=== PATIENT | female | born 1935 | race Caucasian/White ===

== ENCOUNTER 2017-11-20 11:28 | Inpatient (IN) | payer OTHER, MEDICARE ==
[2017-11-20] MEDS ORDERED: LEVAQUIN PREMIX IV 750 MG 750 MG/150 ML BAG IV ONE (13:55)
[2017-11-20] MEDS ORDERED: REFLEX: PROVENTIL NEB & PulmiCORT NEB~ NEB SCH (14:00)
[2017-11-20 14:27] LABS: BASOPHILS % (AUTO) 0.4 % (0.2-1.0); EOSINOPHILS # (AUTO) 0.1 x10^3/uL (0.0-0.2); EOSINOPHILS % (AUTO) 0.9 % (0.9-2.9); HEMATOCRIT 39.9 % (36.0-47.0); HEMOGLOBIN 13.7 g/dL (12.0-16.0); MEAN CORPUSCULAR HEMOGLOBIN 30.4 pg (27.0-34.0); MEAN CORPUSCULAR HGB CONC 34.4 g/dL (33.0-35.0); MEAN CORPUSCULAR VOLUME 88.4 fL (80.0-100.0); MEAN PLATELET VOLUME 8.9 fL (7.4-11.0); MONOCYTES # (AUTO) 0.9 x10^3/uL (0.3-0.8); MONOCYTES % (AUTO) 9.2 % (0.0-13.0); NEUTROPHILS % (AUTO) 79.5 % (42.0-75.0); PLATELET COUNT 313 X10^3/uL (150.0-450.0); RED BLOOD COUNT 4.51 X10^6/uL (3.5-5.4); RED CELL DISTRIBUTION WIDTH 13.8 % (11.6-16.5)
[2017-11-20] MEDS ORDERED: NS 1/2 1000 ML IV 1,000 ML IV ONE (14:27)
[2017-11-20 14:39] LABS: ALANINE AMINOTRANSFERASE 21 Units/L (12-78); ALBUMIN 3.4 g/dL (3.4-5.0); ALKALINE PHOSPHATASE 111 Units/L (46-116); ASPARTATE AMINO TRANSFERASE 14 Units/L (15-37); BLOOD UREA NITROGEN 16 mg/dL (7-18); CALCIUM 8.8 mg/dL (8.5-10.1); CARBON DIOXIDE 28.3 mmol/L (21-32); CHLORIDE 97 mmol/L (98-107); COR NA(FOR HYPERGLY) 139 mmol/L (136-145); CREATININE 1.21 mg/dL (0.55-1.02); SODIUM 137 mmol/L (136-145); TOTAL PROTEIN 7.6 g/dL (6.4-8.2); eGFR BLACK RACES 55 (>60); eGFR NON BLACK RACES 46 (>60)
[2017-11-20] MEDS: DUONEB 0.5 MG/3 MG NEB SCH ×3 (14:58→20:38)
[2017-11-20] MEDS: NS 1/2 1000 ML IV 1,000 ML IV SCH (15:00)
[2017-11-20] MEDS: ROBITUSSIN DM PO SCH ×3 (15:00→21:44)
--- NOTE | 2017-11-20 15:11 | RAD ---
Examination: Chest, PA and lateral views History: Pneumonia Comparison reference: None Findings: Normal heart size, essentially clear lungs. Prominent linear markings in the retrocardiac l eft base and costophrenic angle. No consolidation, pneumothorax or pleural fluid. Impression: Probably negative chest. Follow-up suggested to evaluate developing possible infiltrate i n the left lower lobe if symptoms persist. Reported By:
[2017-11-20] MEDS: TYLENOL 325 MG TAB PO PRN (17:20)
[2017-11-20 19:53] LABS: BILIRUBIN,URINE NEGATIVE (NEGATIVE); BLOOD/HEMOGLOBIN,URINE NEGATIVE (NEGATIVE); GLUCOSE, URINE NEGATIVE (NEGATIVE); KETONES,URINE 1+ (NEGATIVE); LEUKOCYTE ESTERASE ,URINE 2+ (NEGATIVE); NITRITES,URINE NEGATIVE (NEGATIVE); PROTEIN,URINE 1+ (NEGATIVE); UROBILINOGEN,URINE NORMAL (NORMAL)
[2017-11-20 19:56] LABS: APPEARANCE,URINE HAZY (CLEAR); BACTERIA,URINE TRACE /HPF (NEGATIVE); COLOR,URINE YELLOW (YELLOW); MUCUS,URINE FEW /HPF (NEGATIVE); SQUAMOUS EPITHELIAL CELL,UR RARE /HPF (NEGATIVE)
[2017-11-20] MEDS: PULMICORT NEB TX 0.5 MG NEB SCH (20:38)
[2017-11-20] MEDS: TUSSIONEX PENNKINETIC SUSP PO PRN (20:40)
[2017-11-21] MEDS ORDERED: NS 1/2 1000 ML IV 1,000 ML IV ONE ×2 (04:32→21:00)
[2017-11-21] MEDS: TYLENOL 325 MG TAB PO PRN ×2 (04:49→16:32)
[2017-11-21] MEDS: NS 1/2 1000 ML IV 1,000 ML IV SCH ×3 (04:50→21:03)
[2017-11-21 05:49] LABS: BASOPHILS % (AUTO) 0.3 % (0.2-1.0); EOSINOPHILS % (AUTO) 0.7 % (0.9-2.9); HEMOGLOBIN 12.3 g/dL (12.0-16.0); LYMPHOCYTES # (AUTO) 1.3 X10^3/uL (1.3-2.9); LYMPHOCYTES % (AUTO) 20.1 % (21.0-51.0); MEAN CORPUSCULAR HEMOGLOBIN 30.3 pg (27.0-34.0); MEAN CORPUSCULAR HGB CONC 34.3 g/dL (33.0-35.0); MEAN CORPUSCULAR VOLUME 88.2 fL (80.0-100.0); MONOCYTES # (AUTO) 0.9 x10^3/uL (0.3-0.8); MONOCYTES % (AUTO) 14.1 % (0.0-13.0); NEUTROPHILS # (AUTO) 4.2 x10^3/uL (2.2-4.8); NEUTROPHILS % (AUTO) 64.8 % (42.0-75.0); PLATELET COUNT 246 X10^3/uL (150.0-450.0); RED BLOOD COUNT 4.08 X10^6/uL (3.5-5.4); RED CELL DISTRIBUTION WIDTH 13.9 % (11.6-16.5); WHITE BLOOD COUNT 6.5 X10^3/uL (3.6-10.0)
[2017-11-21 06:09] LABS: ALANINE AMINOTRANSFERASE 18 Units/L (12-78); ALBUMIN 2.8 g/dL (3.4-5.0); ALKALINE PHOSPHATASE 93 Units/L (46-116); ASPARTATE AMINO TRANSFERASE 14 Units/L (15-37); BLOOD UREA NITROGEN 17 mg/dL (7-18); CALCIUM 8.2 mg/dL (8.5-10.1); CARBON DIOXIDE 29.8 mmol/L (21-32); CHLORIDE 98 mmol/L (98-107); COR CA(FOR HYPOALB) 9.2 mg/dL (8.5-10.1); COR NA(FOR HYPERGLY) 137 mmol/L (136-145); CREATININE 0.98 mg/dL (0.55-1.02); SODIUM 137 mmol/L (136-145); TOTAL PROTEIN 6.6 g/dL (6.4-8.2); eGFR BLACK RACES > 60 (>60); eGFR NON BLACK RACES 58 (>60)
--- NOTE | 2017-11-21 07:41 | RAD ---
Examination: Portable AP chest History: Pneumonia Comparison reference 11/20/2017 Findings: Continued normal heart size. Prominent interstitial pattern again noted in the left lower l pedro luis without interval progression. No consolidation, pulmonary edema or pneumothorax identified. Impression: No change since 1 day earlier. Reported By:
[2017-11-21] MEDS ORDERED: BENTYL CAP 10 MG PO PRN (07:51)
[2017-11-21] MEDS: SYNTHROID 50 mcg TAB PO SCH (08:50)
[2017-11-21] MEDS: ROBITUSSIN DM PO SCH ×4 (08:50→21:10)
[2017-11-21] MEDS: DIFLUCAN 200 MG IV PREMIX* 200 MG/100 ML BAG IV SCH ×2 (08:50→08:51)
[2017-11-21] MEDS: LEVAQUIN PREMIX IV 750 MG 750 MG/150 ML BAG IV SCH ×2 (08:50→08:51)
[2017-11-21] MEDS: WELCHOL PO SCH ×4 (08:51→21:10)
[2017-11-21] MEDS: PROTONIX TAB 40 MG PO SCH ×2 (08:51→21:05)
[2017-11-21] MEDS: ZYLOPRIM PO SCH (08:51)
[2017-11-21] MEDS: MUCINEX EXPECTORANT PO SCH (08:51)
[2017-11-21] MEDS: ZANTAC PO SCH ×2 (08:51→21:04)
[2017-11-21] MEDS: SACCHAROMYCES BOULARDII PO SCH (08:52)
[2017-11-21] MEDS: DUONEB 0.5 MG/3 MG NEB SCH ×2 (08:57→12:10)
[2017-11-21] MEDS: PULMICORT NEB TX 0.5 MG NEB SCH ×2 (08:57→20:59)
[2017-11-21] MEDS ORDERED: LEVAQUIN PREMIX IV 750 MG 750 MG/150 ML BAG IV SCH (09:00)
[2017-11-21] MEDS ORDERED: PHARMACY CONSULT - TPN XX SCH (11:00)
[2017-11-21] MEDS: COLACE CAP 100 MG PO SCH ×2 (11:31→21:09)
[2017-11-21] MEDS: ALBUMIN HUMAN 25%- 100ML 100 ML IV SCH (11:31)
[2017-11-21] MEDS: MILK OF MAGNESIA PO SCH ×4 (11:31→21:09)
[2017-11-21] MEDS: FORTAZ or TAZICEF INJ 2 GM in NS 50 ML IV + SPIKE MINIBAG* 50 ML IV SCH ×3 (12:00→21:04)
[2017-11-21] MEDS ORDERED: PROCALAMINE 3 % 1,000 ML IV SCH ×2 (12:00→16:00)
[2017-11-21] MEDS ORDERED: CHLORASEPTIC SPRAY MT ONE (15:39)
[2017-11-21] MEDS ORDERED: CHLORASEPTIC SPRAY MT PRN (16:03)
[2017-11-21] MEDS: XOPENEX 1.25 MG/3 ML NEBULE NEB SCH ×2 (17:24→21:00)
[2017-11-21] MEDS: TUSSIONEX PENNKINETIC SUSP PO PRN (21:04)
[2017-11-22] MEDS: TYLENOL 325 MG TAB PO PRN (04:59)
[2017-11-22 05:28] LABS: BASOPHILS % (AUTO) 0.3 % (0.2-1.0); EOSINOPHILS % (AUTO) 0.3 % (0.9-2.9); HEMATOCRIT 32.6 % (36.0-47.0); HEMOGLOBIN 11.4 g/dL (12.0-16.0); LYMPHOCYTES # (AUTO) 0.9 X10^3/uL (1.3-2.9); LYMPHOCYTES % (AUTO) 15.2 % (21.0-51.0); MEAN CORPUSCULAR HEMOGLOBIN 30.6 pg (27.0-34.0); MEAN CORPUSCULAR VOLUME 87.5 fL (80.0-100.0); MEAN PLATELET VOLUME 8.8 fL (7.4-11.0); MONOCYTES # (AUTO) 0.8 x10^3/uL (0.3-0.8); NEUTROPHILS # (AUTO) 4.2 x10^3/uL (2.2-4.8); NEUTROPHILS % (AUTO) 71.2 % (42.0-75.0); PLATELET COUNT 228 X10^3/uL (150.0-450.0); RED BLOOD COUNT 3.73 X10^6/uL (3.5-5.4); RED CELL DISTRIBUTION WIDTH 13.8 % (11.6-16.5); WHITE BLOOD COUNT 5.9 X10^3/uL (3.6-10.0)
[2017-11-22] MEDS: FORTAZ or TAZICEF INJ 2 GM in NS 50 ML IV + SPIKE MINIBAG* 50 ML IV SCH ×3 (05:39→21:16)
[2017-11-22] MEDS: NS 1/2 1000 ML IV 1,000 ML IV SCH (05:43)
[2017-11-22 05:57] LABS: ALANINE AMINOTRANSFERASE 17 Units/L (12-78); ALBUMIN 2.8 g/dL (3.4-5.0); ALKALINE PHOSPHATASE 85 Units/L (46-116); ASPARTATE AMINO TRANSFERASE 13 Units/L (15-37); BLOOD UREA NITROGEN 12 mg/dL (7-18); CALCIUM 8.1 mg/dL (8.5-10.1); CARBON DIOXIDE 28.1 mmol/L (21-32); CHLORIDE 99 mmol/L (98-107); COR CA(FOR HYPOALB) 9.1 mg/dL (8.5-10.1); COR NA(FOR HYPERGLY) 137 mmol/L (136-145); CREATININE 0.82 mg/dL (0.55-1.02); SODIUM 136 mmol/L (136-145); TOTAL PROTEIN 6.2 g/dL (6.4-8.2); eGFR BLACK RACES > 60 (>60); eGFR NON BLACK RACES > 60 (>60)
[2017-11-22] MEDS ORDERED: POTASSIUM CHL 60 MEQ/NS 0.45% 500 ML IV PRN (06:31)
[2017-11-22] MEDS ORDERED: MAG-OX TAB PO PRN (06:31)
[2017-11-22] MEDS ORDERED: POTASSIUM CHL 40 MEQ/NS 0.45% 500 ML IV PRN (06:31)
[2017-11-22] MEDS ORDERED: MAGNESIUM SULFATE 1 GM/100 mL PREMIX 1 GM/100 ML BAG IV PRN (06:31)
[2017-11-22] MEDS ORDERED: K-RIDER 10 MEQ/NS 100 ML 10 MEQ/100 ML BAG IV PRN (06:31)
[2017-11-22] MEDS ORDERED: POTASSIUM CHLORIDE LIQ 20 MEQ UDC PO PRN (06:31)
[2017-11-22] MEDS: MUCINEX EXPECTORANT PO SCH (09:16)
[2017-11-22] MEDS: DIFLUCAN 200 MG IV PREMIX* 200 MG/100 ML BAG IV SCH (09:16)
[2017-11-22] MEDS: ZYLOPRIM PO SCH (09:16)
[2017-11-22] MEDS: PROTONIX TAB 40 MG PO SCH ×2 (09:17→21:15)
[2017-11-22] MEDS: ZANTAC PO SCH ×2 (09:17→21:15)
[2017-11-22] MEDS: SYNTHROID 50 mcg TAB PO SCH (09:17)
[2017-11-22] MEDS: WELCHOL PO SCH ×3 (09:17→21:15)
[2017-11-22] MEDS: MILK OF MAGNESIA PO SCH ×4 (09:18→21:17)
[2017-11-22] MEDS: TUSSIONEX PENNKINETIC SUSP PO PRN ×2 (09:18→21:16)
[2017-11-22] MEDS: ROBITUSSIN DM PO SCH ×4 (09:18→21:17)
[2017-11-22] MEDS: ALBUMIN HUMAN 25%- 100ML 100 ML IV SCH (09:19)
[2017-11-22] MEDS: SACCHAROMYCES BOULARDII PO SCH (09:19)
[2017-11-22] MEDS: XOPENEX 1.25 MG/3 ML NEBULE NEB SCH ×4 (09:27→20:33)
[2017-11-22] MEDS: PULMICORT NEB TX 0.5 MG NEB SCH ×2 (09:27→20:32)
[2017-11-22] MEDS: COLACE CAP 100 MG PO SCH (21:18)
[2017-11-23] MEDS: FORTAZ or TAZICEF INJ 2 GM in NS 50 ML IV + SPIKE MINIBAG* 50 ML IV SCH ×3 (06:01→22:02)
--- NOTE | 2017-11-23 06:05 | RAD ---
Examination: Chest, PA and lateral views History: Pneumonia Comparison reference 11/21/2017 Findings: Continued normal heart size. The right lung is clear. Increased streaky density persists at the left lower lung consistent with mild infiltrate or scarring. There is no consolidation, adenopat hy or pleural fluid. Impression: No change. See above. Reported By:
[2017-11-23 06:22] LABS: BASOPHILS % (AUTO) 0.7 % (0.2-1.0); EOSINOPHILS # (AUTO) 0.1 x10^3/uL (0.0-0.2); EOSINOPHILS % (AUTO) 2.8 % (0.9-2.9); HEMATOCRIT 31.5 % (36.0-47.0); LYMPHOCYTES # (AUTO) 1.4 X10^3/uL (1.3-2.9); LYMPHOCYTES % (AUTO) 32.3 % (21.0-51.0); MEAN CORPUSCULAR HEMOGLOBIN 30.5 pg (27.0-34.0); MEAN CORPUSCULAR HGB CONC 34.8 g/dL (33.0-35.0); MEAN CORPUSCULAR VOLUME 87.8 fL (80.0-100.0); MEAN PLATELET VOLUME 8.9 fL (7.4-11.0); MONOCYTES # (AUTO) 0.6 x10^3/uL (0.3-0.8); MONOCYTES % (AUTO) 14.8 % (0.0-13.0); NEUTROPHILS # (AUTO) 2.1 x10^3/uL (2.2-4.8); NEUTROPHILS % (AUTO) 49.4 % (42.0-75.0); PLATELET COUNT 229 X10^3/uL (150.0-450.0); RED BLOOD COUNT 3.59 X10^6/uL (3.5-5.4); RED CELL DISTRIBUTION WIDTH 13.8 % (11.6-16.5); WHITE BLOOD COUNT 4.3 X10^3/uL (3.6-10.0)
[2017-11-23 06:42] LABS: ALANINE AMINOTRANSFERASE 18 Units/L (12-78); ALKALINE PHOSPHATASE 78 Units/L (46-116); ASPARTATE AMINO TRANSFERASE 14 Units/L (15-37); BLOOD UREA NITROGEN 9 mg/dL (7-18); CARBON DIOXIDE 29.8 mmol/L (21-32); CHLORIDE 104 mmol/L (98-107); COR CA(FOR HYPOALB) 8.8 mg/dL (8.5-10.1); SODIUM 140 mmol/L (136-145); TOTAL PROTEIN 6.1 g/dL (6.4-8.2); eGFR BLACK RACES > 60 (>60); eGFR NON BLACK RACES > 60 (>60)
[2017-11-23] MEDS: SYNTHROID 50 mcg TAB PO SCH (08:36)
[2017-11-23] MEDS: SACCHAROMYCES BOULARDII PO SCH (08:36)
[2017-11-23] MEDS: DIFLUCAN 200 MG IV PREMIX* 200 MG/100 ML BAG IV SCH (08:36)
[2017-11-23] MEDS: MILK OF MAGNESIA PO SCH ×4 (08:37→20:41)
[2017-11-23] MEDS: MUCINEX EXPECTORANT PO SCH (08:37)
[2017-11-23] MEDS: PROTONIX TAB 40 MG PO SCH ×2 (08:37→20:41)
[2017-11-23] MEDS: ZYLOPRIM PO SCH (08:37)
[2017-11-23] MEDS: WELCHOL PO SCH ×3 (08:37→20:44)
[2017-11-23] MEDS: ALBUMIN HUMAN 25%- 100ML 100 ML IV SCH (08:37)
[2017-11-23] MEDS: ROBITUSSIN DM PO SCH ×4 (08:42→20:41)
[2017-11-23] MEDS: PULMICORT NEB TX 0.5 MG NEB SCH ×2 (09:06→21:02)
[2017-11-23] MEDS: XOPENEX 1.25 MG/3 ML NEBULE NEB SCH ×4 (09:06→21:02)
[2017-11-23] MEDS: ZANTAC PO SCH ×2 (09:45→20:41)
[2017-11-23] MEDS: K-LYTE EFFERVESCENT PO PRN (18:28)
[2017-11-23] MEDS: TUSSIONEX PENNKINETIC SUSP PO PRN (20:41)
[2017-11-23] MEDS: COLACE CAP 100 MG PO SCH (20:42)
[2017-11-24 05:32] LABS: BASOPHILS % (AUTO) 0.6 % (0.2-1.0); BLOOD UREA NITROGEN 10 mg/dL (7-18); CALCIUM 8.2 mg/dL (8.5-10.1); CARBON DIOXIDE 29.3 mmol/L (21-32); CHLORIDE 104 mmol/L (98-107); COR NA(FOR HYPERGLY) 140 mmol/L (136-145); CREATININE 0.68 mg/dL (0.55-1.02); EOSINOPHILS # (AUTO) 0.2 x10^3/uL (0.0-0.2); EOSINOPHILS % (AUTO) 2.4 % (0.9-2.9); HEMATOCRIT 30.5 % (36.0-47.0); HEMOGLOBIN 10.7 g/dL (12.0-16.0); LYMPHOCYTES # (AUTO) 1.6 X10^3/uL (1.3-2.9); LYMPHOCYTES % (AUTO) 26.2 % (21.0-51.0); MEAN CORPUSCULAR HGB CONC 34.9 g/dL (33.0-35.0); MEAN CORPUSCULAR VOLUME 88.7 fL (80.0-100.0); MEAN PLATELET VOLUME 8.6 fL (7.4-11.0); MONOCYTES # (AUTO) 0.6 x10^3/uL (0.3-0.8); MONOCYTES % (AUTO) 10.3 % (0.0-13.0); NEUTROPHILS # (AUTO) 3.8 x10^3/uL (2.2-4.8); NEUTROPHILS % (AUTO) 60.5 % (42.0-75.0); PLATELET COUNT 252 X10^3/uL (150.0-450.0); RED BLOOD COUNT 3.44 X10^6/uL (3.5-5.4); RED CELL DISTRIBUTION WIDTH 13.8 % (11.6-16.5); SODIUM 140 mmol/L (136-145); WHITE BLOOD COUNT 6.3 X10^3/uL (3.6-10.0); eGFR BLACK RACES > 60 (>60); eGFR NON BLACK RACES > 60 (>60)
[2017-11-24] MEDS: FORTAZ or TAZICEF INJ 2 GM in NS 50 ML IV + SPIKE MINIBAG* 50 ML IV SCH ×3 (05:53→22:15)
[2017-11-24] MEDS: ALBUMIN HUMAN 25%- 100ML 100 ML IV SCH (08:30)
[2017-11-24] MEDS: ZANTAC PO SCH ×2 (08:31→20:38)
[2017-11-24] MEDS: DIFLUCAN 200 MG IV PREMIX* 200 MG/100 ML BAG IV SCH (08:31)
[2017-11-24] MEDS: ZYLOPRIM PO SCH (08:31)
[2017-11-24] MEDS: MUCINEX EXPECTORANT PO SCH (08:31)
[2017-11-24] MEDS: SACCHAROMYCES BOULARDII PO SCH (08:32)
[2017-11-24] MEDS: PROTONIX TAB 40 MG PO SCH ×2 (08:32→20:38)
[2017-11-24] MEDS: SYNTHROID 50 mcg TAB PO SCH (08:32)
[2017-11-24] MEDS: ROBITUSSIN DM PO SCH ×4 (08:33→20:38)
[2017-11-24] MEDS: MILK OF MAGNESIA PO SCH ×4 (08:39→20:38)
[2017-11-24] MEDS: WELCHOL PO SCH ×2 (08:39→20:39)
[2017-11-24] MEDS: XOPENEX 1.25 MG/3 ML NEBULE NEB SCH ×4 (09:12→20:58)
[2017-11-24] MEDS: PULMICORT NEB TX 0.5 MG NEB SCH ×2 (09:12→20:58)
[2017-11-24] MEDS ORDERED: OLMESARTAN MEDOXOMIL HYDROCHLO PO SCH (12:30)
[2017-11-24] MEDS ORDERED: [UNRECOGNIZED DRUG - OTHER] PO SCH (12:30)
[2017-11-24] MEDS ORDERED: BENICAR TAB 40 MG PO ONE (13:11)
[2017-11-24] MEDS: LOPRESSOR TAB 50 MG PO SCH ×2 (13:33→20:38)
[2017-11-24] MEDS: COLACE CAP 100 MG PO SCH ×2 (20:38→20:40)
[2017-11-25 05:06] LABS: BASOPHILS % (AUTO) 0.4 % (0.2-1.0); EOSINOPHILS # (AUTO) 0.1 x10^3/uL (0.0-0.2); EOSINOPHILS % (AUTO) 1.2 % (0.9-2.9); HEMATOCRIT 31.3 % (36.0-47.0); HEMOGLOBIN 10.8 g/dL (12.0-16.0); LYMPHOCYTES # (AUTO) 1.6 X10^3/uL (1.3-2.9); LYMPHOCYTES % (AUTO) 16.6 % (21.0-51.0); MEAN CORPUSCULAR HEMOGLOBIN 30.3 pg (27.0-34.0); MEAN CORPUSCULAR HGB CONC 34.6 g/dL (33.0-35.0); MEAN CORPUSCULAR VOLUME 87.4 fL (80.0-100.0); MEAN PLATELET VOLUME 8.6 fL (7.4-11.0); MONOCYTES # (AUTO) 0.7 x10^3/uL (0.3-0.8); MONOCYTES % (AUTO) 7.8 % (0.0-13.0); NEUTROPHILS # (AUTO) 7.1 x10^3/uL (2.2-4.8); PLATELET COUNT 275 X10^3/uL (150.0-450.0); RED BLOOD COUNT 3.58 X10^6/uL (3.5-5.4); RED CELL DISTRIBUTION WIDTH 13.7 % (11.6-16.5); WHITE BLOOD COUNT 9.6 X10^3/uL (3.6-10.0)
[2017-11-25 05:14] LABS: ALANINE AMINOTRANSFERASE 18 Units/L (12-78); ALBUMIN 3.2 g/dL (3.4-5.0); ALKALINE PHOSPHATASE 77 Units/L (46-116); ASPARTATE AMINO TRANSFERASE 12 Units/L (15-37); BLOOD UREA NITROGEN 11 mg/dL (7-18); CALCIUM 8.5 mg/dL (8.5-10.1); CARBON DIOXIDE 27.5 mmol/L (21-32); CHLORIDE 103 mmol/L (98-107); COR CA(FOR HYPOALB) 9.1 mg/dL (8.5-10.1); COR NA(FOR HYPERGLY) 140 mmol/L (136-145); CREATININE 0.75 mg/dL (0.55-1.02); SODIUM 140 mmol/L (136-145); TOTAL PROTEIN 6.4 g/dL (6.4-8.2); eGFR BLACK RACES > 60 (>60); eGFR NON BLACK RACES > 60 (>60)
[2017-11-25] MEDS: FORTAZ or TAZICEF INJ 2 GM in NS 50 ML IV + SPIKE MINIBAG* 50 ML IV SCH ×3 (05:58→21:30)
--- NOTE | 2017-11-25 07:07 | RAD ---
HISTORY: Follow-up pneumonia Study: Chest PA and lateral Comparison: 11/23/2017, 11/21/20 Findings: The heart is within normal limits in size. The garry are normal. The lungs are well inflated and free of acute alveolar infiltrates. No pleural effusions are identified. The bony thorax is unremarkable. IMPRESSION: Lungs clear Reported By:
[2017-11-25] MEDS: TYLENOL 325 MG TAB PO PRN (07:29)
[2017-11-25] MEDS: XOPENEX 1.25 MG/3 ML NEBULE NEB SCH ×4 (08:44→21:48)
[2017-11-25] MEDS: PULMICORT NEB TX 0.5 MG NEB SCH ×2 (08:44→21:50)
[2017-11-25] MEDS: ZANTAC PO SCH ×2 (09:25→21:38)
[2017-11-25] MEDS: ROBITUSSIN DM PO SCH ×4 (09:25→21:38)
[2017-11-25] MEDS: PROTONIX TAB 40 MG PO SCH ×2 (09:25→21:38)
[2017-11-25] MEDS: DIFLUCAN 200 MG IV PREMIX* 200 MG/100 ML BAG IV SCH (09:25)
[2017-11-25] MEDS: SYNTHROID 50 mcg TAB PO SCH (09:25)
[2017-11-25] MEDS: ALBUMIN HUMAN 25%- 100ML 100 ML IV SCH (09:25)
[2017-11-25] MEDS: ZYLOPRIM PO SCH (09:25)
[2017-11-25] MEDS: MUCINEX EXPECTORANT PO SCH (09:25)
[2017-11-25] MEDS: BENICAR TAB 40 MG PO SCH (09:25)
[2017-11-25] MEDS: LOPRESSOR TAB 50 MG PO SCH ×2 (09:25→21:38)
[2017-11-25] MEDS: HYDROCHLOROTHIAZIDE 25 MG TAB PO SCH (09:25)
[2017-11-25] MEDS: SACCHAROMYCES BOULARDII PO SCH (09:26)
[2017-11-25] MEDS: WELCHOL PO SCH ×2 (09:31→21:40)
[2017-11-25] MEDS: MILK OF MAGNESIA PO SCH ×4 (09:35→21:39)
[2017-11-25] MEDS: ZOFRAN INJ 4 MG VIAL IVP PRN (12:58)
[2017-11-25] MEDS: COLACE CAP 100 MG PO SCH (21:39)
[2017-11-26 04:59] LABS: BASOPHILS % (AUTO) 0.4 % (0.2-1.0); EOSINOPHILS # (AUTO) 0.2 x10^3/uL (0.0-0.2); EOSINOPHILS % (AUTO) 1.9 % (0.9-2.9); HEMATOCRIT 31.8 % (36.0-47.0); HEMOGLOBIN 10.9 g/dL (12.0-16.0); LYMPHOCYTES # (AUTO) 1.7 X10^3/uL (1.3-2.9); LYMPHOCYTES % (AUTO) 16.7 % (21.0-51.0); MEAN CORPUSCULAR HEMOGLOBIN 30.4 pg (27.0-34.0); MEAN CORPUSCULAR HGB CONC 34.2 g/dL (33.0-35.0); MEAN CORPUSCULAR VOLUME 88.9 fL (80.0-100.0); MEAN PLATELET VOLUME 8.7 fL (7.4-11.0); MONOCYTES # (AUTO) 0.8 x10^3/uL (0.3-0.8); MONOCYTES % (AUTO) 7.4 % (0.0-13.0); NEUTROPHILS # (AUTO) 7.5 x10^3/uL (2.2-4.8); NEUTROPHILS % (AUTO) 73.6 % (42.0-75.0); PLATELET COUNT 295 X10^3/uL (150.0-450.0); RED BLOOD COUNT 3.58 X10^6/uL (3.5-5.4); RED CELL DISTRIBUTION WIDTH 13.3 % (11.6-16.5); WHITE BLOOD COUNT 10.3 X10^3/uL (3.6-10.0)
[2017-11-26 05:23] LABS: ALANINE AMINOTRANSFERASE 19 Units/L (12-78); ALBUMIN 3.4 g/dL (3.4-5.0); ALKALINE PHOSPHATASE 79 Units/L (46-116); ASPARTATE AMINO TRANSFERASE 11 Units/L (15-37); BLOOD UREA NITROGEN 12 mg/dL (7-18); CALCIUM 8.6 mg/dL (8.5-10.1); CARBON DIOXIDE 27.7 mmol/L (21-32); CHLORIDE 102 mmol/L (98-107); CREATININE 0.69 mg/dL (0.55-1.02); SODIUM 140 mmol/L (136-145); TOTAL PROTEIN 6.6 g/dL (6.4-8.2); eGFR BLACK RACES > 60 (>60); eGFR NON BLACK RACES > 60 (>60)
[2017-11-26] MEDS: FORTAZ or TAZICEF INJ 2 GM in NS 50 ML IV + SPIKE MINIBAG* 50 ML IV SCH ×3 (05:52→21:15)
[2017-11-26] MEDS: K-LYTE EFFERVESCENT PO PRN (06:30)
[2017-11-26] MEDS: PULMICORT NEB TX 0.5 MG NEB SCH ×2 (08:20→20:51)
[2017-11-26] MEDS: XOPENEX 1.25 MG/3 ML NEBULE NEB SCH ×4 (08:21→20:51)
[2017-11-26] MEDS: ALBUMIN HUMAN 25%- 100ML 100 ML IV SCH (09:34)
[2017-11-26] MEDS: DIFLUCAN 200 MG IV PREMIX* 200 MG/100 ML BAG IV SCH (09:35)
[2017-11-26] MEDS: MILK OF MAGNESIA PO SCH ×4 (09:36→21:22)
[2017-11-26] MEDS: ZANTAC PO SCH ×2 (09:47→21:13)
[2017-11-26] MEDS: WELCHOL PO SCH ×2 (09:47→18:10)
[2017-11-26] MEDS: SACCHAROMYCES BOULARDII PO SCH (09:47)
[2017-11-26] MEDS: BENICAR TAB 40 MG PO SCH (09:47)
[2017-11-26] MEDS: ZYLOPRIM PO SCH (09:47)
[2017-11-26] MEDS: SYNTHROID 50 mcg TAB PO SCH (09:47)
[2017-11-26] MEDS: MUCINEX EXPECTORANT PO SCH (09:48)
[2017-11-26] MEDS: LOPRESSOR TAB 50 MG PO SCH ×2 (09:48→21:13)
[2017-11-26] MEDS: HYDROCHLOROTHIAZIDE 25 MG TAB PO SCH (09:48)
[2017-11-26] MEDS: ROBITUSSIN DM PO SCH ×4 (09:48→21:23)
[2017-11-26] MEDS: PROTONIX TAB 40 MG PO SCH ×2 (09:48→21:13)
[2017-11-26 10:53] LABS: STOOL FOR WBC POSITIVE (NEGATIVE)
[2017-11-26 11:12] LABS: CRYPTOSPORIDIUM PARVUM ANTIGEN NEGATIVE (NEGATIVE); GIARDIA LAMBLIA ANTIGEN NEGATIVE (NEGATIVE)
[2017-11-26] MEDS: TUSSIONEX PENNKINETIC SUSP PO PRN (14:50)
[2017-11-26] MEDS ORDERED: WELCHOL PO SCH (17:00)
[2017-11-26] MEDS: COLACE CAP 100 MG PO SCH (21:22)
[2017-11-27 04:49] LABS: BASOPHILS # (AUTO) 0.1 X10^3/uL (0.0-0.1); BASOPHILS % (AUTO) 0.6 % (0.2-1.0); EOSINOPHILS # (AUTO) 0.2 x10^3/uL (0.0-0.2); EOSINOPHILS % (AUTO) 2.2 % (0.9-2.9); HEMATOCRIT 29.9 % (36.0-47.0); HEMOGLOBIN 10.5 g/dL (12.0-16.0); LYMPHOCYTES # (AUTO) 1.6 X10^3/uL (1.3-2.9); LYMPHOCYTES % (AUTO) 17.4 % (21.0-51.0); MEAN CORPUSCULAR HEMOGLOBIN 30.8 pg (27.0-34.0); MEAN CORPUSCULAR VOLUME 87.9 fL (80.0-100.0); MEAN PLATELET VOLUME 8.6 fL (7.4-11.0); MONOCYTES # (AUTO) 0.8 x10^3/uL (0.3-0.8); MONOCYTES % (AUTO) 8.1 % (0.0-13.0); NEUTROPHILS # (AUTO) 6.8 x10^3/uL (2.2-4.8); NEUTROPHILS % (AUTO) 71.7 % (42.0-75.0); PLATELET COUNT 316 X10^3/uL (150.0-450.0); RED CELL DISTRIBUTION WIDTH 13.7 % (11.6-16.5); WHITE BLOOD COUNT 9.4 X10^3/uL (3.6-10.0)
[2017-11-27 04:58] LABS: ALANINE AMINOTRANSFERASE 17 Units/L (12-78); ALBUMIN 3.3 g/dL (3.4-5.0); ALKALINE PHOSPHATASE 78 Units/L (46-116); ASPARTATE AMINO TRANSFERASE 10 Units/L (15-37); BLOOD UREA NITROGEN 13 mg/dL (7-18); CALCIUM 8.4 mg/dL (8.5-10.1); CARBON DIOXIDE 28.8 mmol/L (21-32); CHLORIDE 102 mmol/L (98-107); CREATININE 0.68 mg/dL (0.55-1.02); SODIUM 140 mmol/L (136-145); TOTAL PROTEIN 6.5 g/dL (6.4-8.2); eGFR BLACK RACES > 60 (>60); eGFR NON BLACK RACES > 60 (>60)
[2017-11-27] MEDS: FORTAZ or TAZICEF INJ 2 GM in NS 50 ML IV + SPIKE MINIBAG* 50 ML IV SCH ×3 (05:55→21:10)
--- NOTE | 2017-11-27 07:17 | RAD ---
HISTORY: Follow-up pneumonia Study: Chest PA and lateral Comparison: 11/25/2017 Findings: The heart is within normal limits in size. The garry are normal. The lungs are free of acute alveolar infiltrates. No pleural effusions are identified. The bony thorax is unremarkable. IMPRESSION: Lungs clear Reported By:
[2017-11-27] MEDS: WELCHOL PO SCH ×2 (08:20→17:20)
[2017-11-27] MEDS: BENICAR TAB 40 MG PO SCH (08:20)
[2017-11-27] MEDS: ZANTAC PO SCH ×2 (08:20→20:50)
[2017-11-27] MEDS: HYDROCHLOROTHIAZIDE 25 MG TAB PO SCH (08:20)
[2017-11-27] MEDS: MUCINEX EXPECTORANT PO SCH (08:20)
[2017-11-27] MEDS: PROTONIX TAB 40 MG PO SCH ×2 (08:20→20:40)
[2017-11-27] MEDS: SYNTHROID 50 mcg TAB PO SCH (08:20)
[2017-11-27] MEDS: ZYLOPRIM PO SCH (08:20)
[2017-11-27] MEDS: ROBITUSSIN DM PO SCH ×4 (08:21→20:39)
[2017-11-27] MEDS: DIFLUCAN 200 MG IV PREMIX* 200 MG/100 ML BAG IV SCH (08:21)
[2017-11-27] MEDS: ALBUMIN HUMAN 25%- 100ML 100 ML IV SCH (08:21)
[2017-11-27] MEDS: LOPRESSOR TAB 50 MG PO SCH ×2 (08:21→20:40)
[2017-11-27] MEDS: SACCHAROMYCES BOULARDII PO SCH (08:22)
[2017-11-27] MEDS: MILK OF MAGNESIA PO SCH ×4 (08:22→20:41)
[2017-11-27] MEDS: XOPENEX 1.25 MG/3 ML NEBULE NEB SCH ×5 (09:46→20:45)
[2017-11-27] MEDS: PULMICORT NEB TX 0.5 MG NEB SCH ×2 (09:46→20:45)
[2017-11-27] MEDS: TESSALON PERLES PO SCH ×3 (12:30→23:03)
[2017-11-27] MEDS: SOLU-Medrol 40 MG VIAL IVP SCH ×2 (14:38→21:10)
[2017-11-27] MEDS: ZOFRAN INJ 4 MG VIAL IVP PRN (19:37)
[2017-11-27] MEDS: COLACE CAP 100 MG PO SCH (20:38)
[2017-11-28] MEDS: TESSALON PERLES PO SCH (05:32)
[2017-11-28] MEDS: SOLU-Medrol 40 MG VIAL IVP SCH (05:32)
[2017-11-28] MEDS: FORTAZ or TAZICEF INJ 2 GM in NS 50 ML IV + SPIKE MINIBAG* 50 ML IV SCH (05:33)
[2017-11-28 05:44] LABS: ALANINE AMINOTRANSFERASE 14 Units/L (12-78); ALBUMIN 3.7 g/dL (3.4-5.0); ALKALINE PHOSPHATASE 83 Units/L (46-116); ASPARTATE AMINO TRANSFERASE 10 Units/L (15-37); BLOOD UREA NITROGEN 15 mg/dL (7-18); CALCIUM 8.9 mg/dL (8.5-10.1); CHLORIDE 99 mmol/L (98-107); COR NA(FOR HYPERGLY) 139 mmol/L (136-145); CREATININE 0.81 mg/dL (0.55-1.02); SODIUM 136 mmol/L (136-145); TOTAL PROTEIN 7.2 g/dL (6.4-8.2); eGFR BLACK RACES > 60 (>60); eGFR NON BLACK RACES > 60 (>60)
[2017-11-28] MEDS: WELCHOL PO SCH (06:07)
--- NOTE | 2017-11-28 07:18 | RAD ---
Dx Examination: Chest, PA and lateral views History: Pneumonia Comparison reference 11/27/2017, and 11/21/2017 Findings: Continued normal heart size. There is diffuse bilateral interstitial increase without evide nce for airspace consolidation or significant pleural effusion. The anterior arch of the azygos vein is distended. Impression: Pulmonary findings described are suggestive of early or mild CHF and perivascular congest ion. Inflammatory process is considered less likely. Correlate clinically. Reported By:
[2017-11-28] MEDS: DIFLUCAN 200 MG IV PREMIX* 200 MG/100 ML BAG IV SCH (08:22)
[2017-11-28] MEDS: ROBITUSSIN DM PO SCH (08:23)
[2017-11-28] MEDS: ZANTAC PO SCH (08:23)
[2017-11-28] MEDS: BENICAR TAB 40 MG PO SCH (08:23)
[2017-11-28] MEDS: PROTONIX TAB 40 MG PO SCH (08:24)
[2017-11-28] MEDS: MUCINEX EXPECTORANT PO SCH (08:24)
[2017-11-28] MEDS: LOPRESSOR TAB 50 MG PO SCH (08:24)
[2017-11-28] MEDS: ZYLOPRIM PO SCH (08:24)
[2017-11-28] MEDS: HYDROCHLOROTHIAZIDE 25 MG TAB PO SCH (08:24)
[2017-11-28] MEDS: SYNTHROID 50 mcg TAB PO SCH (08:25)
[2017-11-28] MEDS: MILK OF MAGNESIA PO SCH (08:36)
[2017-11-28] MEDS: SACCHAROMYCES BOULARDII PO SCH (08:55)
[2017-11-28] MEDS: PULMICORT NEB TX 0.5 MG NEB SCH (09:46)
[2017-11-28] MEDS: XOPENEX 1.25 MG/3 ML NEBULE NEB SCH (09:46)
[2017-11-28 10:07] VITALS: BP 119/58
[2017-11-28] MEDS ORDERED: FORTAZ or TAZICEF INJ 2 GM in NS 50 ML IV 50 ML IV SCH (14:00)
== END 2017-11-28 11:55 | disposition home or self-care (01) | DRG 194 ==
LOC: UNDOADMIN 11:28 → MED/SURG 11:28
PROVIDERS: ADMIT Internal Medicine; ATTEND Internal Medicine
DX: J18.8 Other pneumonia, unspecified organism (principal); J40 Bronchitis, not specified as acute or chronic; J01.00 Acute maxillary sinusitis, unspecified; R06.03 Acute respiratory distress; J44.1 Chronic obstructive pulmonary disease with (acute) exacerbation; I10 Essential (primary) hypertension; R19.7 Diarrhea, unspecified
CPT/HCPCS: 36415; 71010; 71020; 80048; 80053; 81001; 82270; 83630; 83735; 84132; 85025; 87040; 87045; 87070; 87086; 87205; 87328; 87329; 87336; 87427; 87493; 87899; 94640; 94669; 94760; 99231; A4222; B5200; P9047; J0713; J1450; J1956; J2405; J2920; J7620; J7626

== ENCOUNTER 2018-05-15 09:25 | Observation (INO) ==
[2018-05-15] MEDS ORDERED: ZOFRAN INJ 4 MG VIAL IVP PRN (11:56)
--- NOTE | 2018-05-15 12:18 | RAD ---
Examination: KUB History: Abdominal pain Findings: Nonobstructive intestinal gas pattern without evidence for mass, free fluid, visceral enlar gement or abnormal calcification. Impression: No significant abnormality demonstrated. Reported By:
[2018-05-15 12:58] LABS: BASOPHILS % (AUTO) 0.2 % (0.2-1.0); EOSINOPHILS % (AUTO) 0.3 % (0.9-2.9); HEMATOCRIT 41.4 % (36.0-47.0); HEMOGLOBIN 14.3 g/dL (12.0-16.0); LYMPHOCYTES # (AUTO) 1.4 X10^3/uL (1.3-2.9); LYMPHOCYTES % (AUTO) 16.5 % (21.0-51.0); MEAN CORPUSCULAR HEMOGLOBIN 30.8 pg (27.0-34.0); MEAN CORPUSCULAR HGB CONC 34.4 g/dL (33.0-35.0); MEAN CORPUSCULAR VOLUME 89.3 fL (80.0-100.0); MEAN PLATELET VOLUME 8.4 fL (7.4-11.0); MONOCYTES # (AUTO) 0.6 x10^3/uL (0.3-0.8); MONOCYTES % (AUTO) 6.6 % (0.0-13.0); NEUTROPHILS # (AUTO) 6.5 x10^3/uL (2.2-4.8); NEUTROPHILS % (AUTO) 76.4 % (42.0-75.0); PLATELET COUNT 332 X10^3/uL (150.0-450.0); RED BLOOD COUNT 4.63 X10^6/uL (3.5-5.4); RED CELL DISTRIBUTION WIDTH 13.4 % (11.6-16.5); WHITE BLOOD COUNT 8.5 X10^3/uL (3.6-10.0)
[2018-05-15 13:09] LABS: ALANINE AMINOTRANSFERASE 22 Units/L (12-78); ALBUMIN 3.5 g/dL (3.4-5.0); ALKALINE PHOSPHATASE 96 Units/L (46-116); ASPARTATE AMINO TRANSFERASE 12 Units/L (15-37); BLOOD UREA NITROGEN 15 mg/dL (7-18); CALCIUM 9.1 mg/dL (8.5-10.1); CARBON DIOXIDE 29.2 mmol/L (21-32); CHLORIDE 95 mmol/L (98-107); COR NA(FOR HYPERGLY) 133 mmol/L (136-145); CREATININE 0.89 mg/dL (0.55-1.02); SODIUM 133 mmol/L (136-145); TOTAL PROTEIN 6.9 g/dL (6.4-8.2); eGFR NON BLACK RACES > 60 (>60)
[2018-05-15] MEDS: VANCOMYCIN HCL PO SCH ×3 (13:30→21:27)
[2018-05-15] MEDS: NS 1000 ML 1,000 ML IV SCH (13:30)
[2018-05-15 15:34] VITALS: BMI 30.4
[2018-05-15 17:19] LABS: BILIRUBIN,URINE NEGATIVE (NEGATIVE); BLOOD/HEMOGLOBIN,URINE NEGATIVE (NEGATIVE); GLUCOSE, URINE NEGATIVE (NEGATIVE); KETONES,URINE NEGATIVE (NEGATIVE); LEUKOCYTE ESTERASE ,URINE 2+ (NEGATIVE); NITRITES,URINE NEGATIVE (NEGATIVE); PROTEIN,URINE NEGATIVE (NEGATIVE); UROBILINOGEN,URINE NORMAL (NORMAL)
[2018-05-15 17:20] LABS: APPEARANCE,URINE HAZY (CLEAR); COLOR,URINE YELLOW (YELLOW)
[2018-05-15 17:26] LABS: BACTERIA,URINE TRACE /HPF (NEGATIVE); HYALINE CASTS, URINE RARE /LPF (NEGATIVE); MUCUS,URINE FEW /HPF (NEGATIVE); SQUAMOUS EPITHELIAL CELL,UR MANY /HPF (NEGATIVE)
--- NOTE | 2018-05-15 20:40 | DR.UPDATE ---
H&P Update History and Physical Update: WAS SEEN IN THE OFFICE TODAY. A H&P WAS COMPLETED PRIOR TO ADMISSION. PATIENT HAS BEEN SEEN AND EXAMINED WITH NO CHANGES NOTED TO H&P. Changes noted: NO Yes with the following:
[2018-05-15] MEDS: BENTYL CAP 10 MG PO SCH (21:26)
[2018-05-15] MEDS: PROTONIX INJ 40 MG VIAL IVP SCH (21:26)
[2018-05-15] MEDS: RESTORIL CAP 30 MG PO SCH (21:26)
[2018-05-15] MEDS: LOPRESSOR TAB 50 MG PO SCH (21:27)
[2018-05-15] MEDS: PEPCID 20 MG IV PREMIX* 20 MG/50 ML BAG IV SCH (21:27)
[2018-05-15] MEDS: SACCHAROMYCES BOULARDII PO SCH (21:28)
[2018-05-16] MEDS: NS 1000 ML 1,000 ML IV SCH ×2 (03:07→11:41)
[2018-05-16] MEDS: VANCOMYCIN HCL PO SCH ×4 (04:00→20:23)
[2018-05-16 06:15] LABS: BASOPHILS % (AUTO) 0.3 % (0.2-1.0); EOSINOPHILS % (AUTO) 0.8 % (0.9-2.9); HEMOGLOBIN 13.7 g/dL (12.0-16.0); LYMPHOCYTES # (AUTO) 1.6 X10^3/uL (1.3-2.9); LYMPHOCYTES % (AUTO) 26.5 % (21.0-51.0); MEAN CORPUSCULAR HEMOGLOBIN 31.5 pg (27.0-34.0); MEAN CORPUSCULAR HGB CONC 35.1 g/dL (33.0-35.0); MEAN CORPUSCULAR VOLUME 89.6 fL (80.0-100.0); MEAN PLATELET VOLUME 8.2 fL (7.4-11.0); MONOCYTES # (AUTO) 0.6 x10^3/uL (0.3-0.8); MONOCYTES % (AUTO) 10.5 % (0.0-13.0); NEUTROPHILS # (AUTO) 3.7 x10^3/uL (2.2-4.8); NEUTROPHILS % (AUTO) 61.9 % (42.0-75.0); PLATELET COUNT 259 X10^3/uL (150.0-450.0); RED BLOOD COUNT 4.35 X10^6/uL (3.5-5.4); RED CELL DISTRIBUTION WIDTH 13.3 % (11.6-16.5)
[2018-05-16 06:35] LABS: ALANINE AMINOTRANSFERASE 21 Units/L (12-78); ALBUMIN 2.9 g/dL (3.4-5.0); ALKALINE PHOSPHATASE 88 Units/L (46-116); ASPARTATE AMINO TRANSFERASE 13 Units/L (15-37); BLOOD UREA NITROGEN 11 mg/dL (7-18); CALCIUM 8.6 mg/dL (8.5-10.1); CARBON DIOXIDE 29.6 mmol/L (21-32); CHLORIDE 99 mmol/L (98-107); COR CA(FOR HYPOALB) 9.5 mg/dL (8.5-10.1); CREATININE 0.82 mg/dL (0.55-1.02); SODIUM 136 mmol/L (136-145); eGFR NON BLACK RACES > 60 (>60)
[2018-05-16] MEDS ORDERED: GLUCOPHAGE ONE (08:55)
[2018-05-16] MEDS ORDERED: [UNRECOGNIZED DRUG - OTHER] PO SCH (09:00)
[2018-05-16] MEDS ORDERED: OLMESARTAN MEDOXOMIL HYDROCHLO PO SCH (09:00)
[2018-05-16] MEDS: BENTYL CAP 10 MG PO SCH ×2 (09:09→20:21)
[2018-05-16] MEDS: SYNTHROID 50 mcg TAB PO SCH (09:10)
[2018-05-16] MEDS: GLUCOPHAGE PO SCH (09:10)
[2018-05-16] MEDS: LOPRESSOR TAB 50 MG PO SCH ×2 (09:10→20:21)
[2018-05-16] MEDS: HYDROCHLOROTHIAZIDE 25 MG TAB PO SCH (09:10)
[2018-05-16] MEDS: BENICAR TAB 40 MG PO SCH (09:11)
[2018-05-16] MEDS: SACCHAROMYCES BOULARDII PO SCH ×2 (09:11→20:23)
[2018-05-16] MEDS: MUCINEX EXPECTORANT PO SCH (09:11)
[2018-05-16] MEDS: ZYLOPRIM PO SCH (09:11)
[2018-05-16 09:53] LABS: STOOL FOR WBC NEGATIVE (NEGATIVE)
[2018-05-16] MEDS: PROTONIX INJ 40 MG VIAL IVP SCH ×2 (10:40→20:22)
[2018-05-16] MEDS: PEPCID 20 MG IV PREMIX* 20 MG/50 ML BAG IV SCH ×2 (10:40→20:22)
[2018-05-16 11:09] LABS: CRYPTOSPORIDIUM PARVUM ANTIGEN NEGATIVE (NEGATIVE); GIARDIA LAMBLIA ANTIGEN NEGATIVE (NEGATIVE)
[2018-05-16] MEDS ORDERED: NS 1000 ML 1,000 ML ONE (11:36)
[2018-05-16] MEDS ORDERED: MAALOX or MYLANTA ONE (15:03)
[2018-05-16] MEDS: MAALOX or MYLANTA PO PRN ×2 (15:15→20:29)
[2018-05-16] MEDS: RESTORIL CAP 30 MG PO SCH (20:21)
[2018-05-17] MEDS: NS 1000 ML 1,000 ML IV SCH ×3 (03:00→23:19)
[2018-05-17] MEDS: VANCOMYCIN HCL PO SCH ×4 (03:00→21:45)
[2018-05-17 06:11] LABS: BASOPHILS % (AUTO) 0.7 % (0.2-1.0); EOSINOPHILS # (AUTO) 0.1 x10^3/uL (0.0-0.2); EOSINOPHILS % (AUTO) 0.9 % (0.9-2.9); HEMATOCRIT 36.4 % (36.0-47.0); HEMOGLOBIN 12.9 g/dL (12.0-16.0); LYMPHOCYTES # (AUTO) 1.5 X10^3/uL (1.3-2.9); LYMPHOCYTES % (AUTO) 22.7 % (21.0-51.0); MEAN CORPUSCULAR HEMOGLOBIN 31.7 pg (27.0-34.0); MEAN CORPUSCULAR HGB CONC 35.4 g/dL (33.0-35.0); MEAN CORPUSCULAR VOLUME 89.6 fL (80.0-100.0); MEAN PLATELET VOLUME 8.4 fL (7.4-11.0); MONOCYTES # (AUTO) 0.5 x10^3/uL (0.3-0.8); MONOCYTES % (AUTO) 8.3 % (0.0-13.0); NEUTROPHILS # (AUTO) 4.5 x10^3/uL (2.2-4.8); NEUTROPHILS % (AUTO) 67.4 % (42.0-75.0); PLATELET COUNT 270 X10^3/uL (150.0-450.0); RED BLOOD COUNT 4.06 X10^6/uL (3.5-5.4); RED CELL DISTRIBUTION WIDTH 13.6 % (11.6-16.5); WHITE BLOOD COUNT 6.6 X10^3/uL (3.6-10.0)
[2018-05-17 06:31] LABS: BLOOD UREA NITROGEN 11 mg/dL (7-18); CALCIUM 8.4 mg/dL (8.5-10.1); CARBON DIOXIDE 30.3 mmol/L (21-32); CHLORIDE 99 mmol/L (98-107); COR NA(FOR HYPERGLY) 136 mmol/L (136-145); CREATININE 0.84 mg/dL (0.55-1.02); SODIUM 136 mmol/L (136-145); eGFR NON BLACK RACES > 60 (>60)
[2018-05-17] MEDS ORDERED: K-LYTE EFFERVESCENT PO PRN (07:43)
[2018-05-17] MEDS ORDERED: K-RIDER 10 MEQ/NS 100 ML 10 MEQ/100 ML BAG IV PRN (07:43)
[2018-05-17] MEDS ORDERED: POTASSIUM CHLORIDE LIQ 20 MEQ UDC PO PRN (07:43)
[2018-05-17] MEDS ORDERED: POTASSIUM CHL 40 MEQ/NS 0.45% 500 ML IV PRN (07:43)
[2018-05-17] MEDS ORDERED: POTASSIUM CHL 60 MEQ/NS 0.45% 500 ML IV PRN (07:43)
[2018-05-17] MEDS ORDERED: NS 100 ML IV 200 ML IV ONE (07:49)
[2018-05-17] MEDS ORDERED: MAGNESIUM SULFATE 50% INJ ONE (07:49)
[2018-05-17] MEDS ORDERED: GLUCOPHAGE ONE (07:58)
[2018-05-17] MEDS: BENTYL CAP 10 MG PO SCH ×2 (08:09→21:45)
[2018-05-17] MEDS: MUCINEX EXPECTORANT PO SCH (08:09)
[2018-05-17] MEDS: HYDROCHLOROTHIAZIDE 25 MG TAB PO SCH (08:09)
[2018-05-17] MEDS: GLUCOPHAGE PO SCH (08:09)
[2018-05-17] MEDS: ZYLOPRIM PO SCH (08:10)
[2018-05-17] MEDS: PEPCID 20 MG IV PREMIX* 20 MG/50 ML BAG IV SCH ×2 (08:10→21:45)
[2018-05-17] MEDS: BENICAR TAB 40 MG PO SCH (08:10)
[2018-05-17] MEDS: SYNTHROID 50 mcg TAB PO SCH (08:10)
[2018-05-17] MEDS: LOPRESSOR TAB 50 MG PO SCH ×2 (08:10→21:45)
[2018-05-17] MEDS: PROTONIX INJ 40 MG VIAL IVP SCH ×2 (08:11→21:45)
[2018-05-17] MEDS: SACCHAROMYCES BOULARDII PO SCH ×2 (08:13→21:45)
[2018-05-17] MEDS: MAGNESIUM SULFATE 1 GRAM/100 mL PREMIX 1 GM/100 ML BAG IV PRN ×2 (08:19→10:11)
[2018-05-17 11:15] LABS: STOOL FOR WBC NEGATIVE (NEGATIVE)
[2018-05-17 11:17] LABS: CRYPTOSPORIDIUM PARVUM ANTIGEN NEGATIVE (NEGATIVE); GIARDIA LAMBLIA ANTIGEN NEGATIVE (NEGATIVE)
[2018-05-17] MEDS: MAALOX or MYLANTA PO PRN (21:45)
[2018-05-17] MEDS: RESTORIL CAP 30 MG PO SCH (23:20)
[2018-05-18] MEDS: VANCOMYCIN HCL PO SCH ×2 (03:36→10:39)
[2018-05-18] MEDS: NS 1000 ML 1,000 ML IV SCH (04:49)
[2018-05-18 05:45] LABS: BASOPHILS % (AUTO) 0.5 % (0.2-1.0); EOSINOPHILS # (AUTO) 0.1 x10^3/uL (0.0-0.2); EOSINOPHILS % (AUTO) 1.2 % (0.9-2.9); HEMOGLOBIN 12.8 g/dL (12.0-16.0); LYMPHOCYTES # (AUTO) 1.8 X10^3/uL (1.3-2.9); LYMPHOCYTES % (AUTO) 25.2 % (21.0-51.0); MEAN CORPUSCULAR HEMOGLOBIN 31.3 pg (27.0-34.0); MEAN CORPUSCULAR HGB CONC 34.5 g/dL (33.0-35.0); MEAN CORPUSCULAR VOLUME 90.6 fL (80.0-100.0); MEAN PLATELET VOLUME 8.8 fL (7.4-11.0); MONOCYTES # (AUTO) 0.6 x10^3/uL (0.3-0.8); MONOCYTES % (AUTO) 7.7 % (0.0-13.0); NEUTROPHILS # (AUTO) 4.7 x10^3/uL (2.2-4.8); NEUTROPHILS % (AUTO) 65.4 % (42.0-75.0); PLATELET COUNT 285 X10^3/uL (150.0-450.0); RED BLOOD COUNT 4.08 X10^6/uL (3.5-5.4); RED CELL DISTRIBUTION WIDTH 13.8 % (11.6-16.5); WHITE BLOOD COUNT 7.2 X10^3/uL (3.6-10.0)
[2018-05-18 05:50] LABS: BLOOD UREA NITROGEN 11 mg/dL (7-18); CALCIUM 8.6 mg/dL (8.5-10.1); CARBON DIOXIDE 28.9 mmol/L (21-32); CHLORIDE 101 mmol/L (98-107); CREATININE 0.85 mg/dL (0.55-1.02); SODIUM 137 mmol/L (136-145); eGFR NON BLACK RACES > 60 (>60)
[2018-05-18 06:02] LABS: MAGNESIUM 1.9 mg/dL (1.7-2.9)
[2018-05-18] MEDS ORDERED: GLUCOPHAGE ONE (10:18)
[2018-05-18] MEDS: BENICAR TAB 40 MG PO SCH (10:35)
[2018-05-18] MEDS: HYDROCHLOROTHIAZIDE 25 MG TAB PO SCH (10:36)
[2018-05-18] MEDS: BENTYL CAP 10 MG PO SCH (10:36)
[2018-05-18] MEDS: GLUCOPHAGE PO SCH (10:36)
[2018-05-18] MEDS: PEPCID 20 MG IV PREMIX* 20 MG/50 ML BAG IV SCH (10:37)
[2018-05-18] MEDS: LOPRESSOR TAB 50 MG PO SCH (10:37)
[2018-05-18] MEDS: PROTONIX INJ 40 MG VIAL IVP SCH (10:37)
[2018-05-18] MEDS: MUCINEX EXPECTORANT PO SCH (10:37)
[2018-05-18] MEDS: SACCHAROMYCES BOULARDII PO SCH (10:38)
[2018-05-18] MEDS: SYNTHROID 50 mcg TAB PO SCH (10:38)
[2018-05-18] MEDS: ZYLOPRIM PO SCH (10:39)
[2018-05-18 11:02] VITALS: BP 148/67
[2018-05-18 14:09] LABS: ALANINE AMINOTRANSFERASE 21 Units/L (12-78); ALKALINE PHOSPHATASE 87 Units/L (46-116); ASPARTATE AMINO TRANSFERASE 12 Units/L (15-37); COR CA(FOR HYPOALB) 9.4 mg/dL (8.5-10.1); TOTAL PROTEIN 5.9 g/dL (6.4-8.2)
--- NOTE | 2018-05-18 19:23 | PCM.PROG ---
Progress Note - Progress Note for Day of Date: 05/16/18 - Subjective Subjective: WAS ADMITTED FOR REFRACTORY DIARRHEA, NAUSEA, AND ABDOMINAL PAIN. TODAY, SHE IS ALERT AND ORIETED, LYING IN BED ON MORNING ROUNDS. SHE CONTINUES WITH COMPLAINTS OF DIARRHEA AND ABDOMINAL CRAMPING TODAY. ON EXAMINATION, HEART IS REGULAR IN RATE AND RHYTHM. BILATERAL LUNGS ARE NOTED WITH DIMINISHED LUNG SOUNDS THROUGHOUT. ABDOMEN IS ROUND, SOFT, AND NOTED WITH MODERATE, DIFFUSE TENDERNESS TO PALPATION. HER VITALS THIS MORNING ARE 97.7-66- 20-97%-130/67. LABS WERE OBTAINED. SHE IS HEMODYNAMICALLY STABLE TODAY. STOOL STUDIES REPORT POSITIVE FOR OCCULT BLOOD. NEGATIVE FOR C DIFF. A KUB WAS OBTAINED AND REVEALED NEGATIVE FOR ACUTE ABNORMALITY. WE WILL OBTAIN TWO ADDITIONAL STOOL SPECIMENS FOR OCCULT BLOOD TODAY. OTHERWISE, WE WILL FOLLOW UP WITH AM LABS AND CONTINUE TO MONITOR PATIENT. - Past Medical Family Social History Past Med/Fam/Surg Hx: No changes since H&P Allergies: Allergies amoxicillin [From Augmentin] Allergy (Verified 11/20/17 14:11) azithromycin [From Zithromax] Allergy (Verified 11/20/17 14:11) budesonide [From Symbicort] Allergy (Verified 11/20/17 14:11) cetirizine [From Zyrtec] Allergy (Verified 11/20/17 14:11) ciprofloxacin [From Cipro] Allergy (Verified 11/20/17 14:11) clavulanic acid [From Augmentin] Allergy (Verified 11/20/17 14:11) clonazepam [From Klonopin] Allergy (Verified 11/20/17 14:11) formoterol [From Symbicort] Allergy (Verified 11/20/17 14:11) meclizine Allergy (Verified 11/20/17 14:11) naproxen Allergy (Verified 11/20/17 14:11) nitrofurantoin [From Macrobid] Allergy (Verified 11/20/17 14:11) omeprazole [From Prilosec] Allergy (Verified 11/20/17 14:11) phenazopyridine [From Pyridium] Allergy (Verified 11/20/17 14:11) sulfamethoxazole [From Bactrim] Allergy (Verified 11/20/17 14:11) tizanidine Allergy (Verified 11/20/17 14:11) trimethoprim [From Bactrim] Allergy (Verified 11/20/17 14:11) - Review of Systems ROS: No change since H&P - Vital Signs and I&O's Vital Signs: Temperature 97.9 F Pulse Rate [Left Brachial] 67 Respiratory Rate 20 Blood Pressure [Right Arm] 148/67 Blood Pressure [Left Arm] 146/64 Blood Pressure 119/58 O2 Sat by Pulse Oximetry 98 Intake and Output: Intake & Output 05/16/18 05/17/18 05/18/18 05/19/18 11:59 11:59 11:59 11:59 Intake Total 920 / 920 1690 / 1690 2540 / 2540 Output Total 0 / 0 Balance 920 / 920 1690 / 1690 2540 / 2540 - Physical Exam Oriented: Normal Eyes: Normal Ear: Normal Nose: Normal Throat: Normal Respiratory: Normal Cardiovascular: Normal : Normal Auscultation: Bowel Sounds: Normal Palpation: Normal Tenderness: Normal, Diffuse, Moderate. negative: Rebound, Guarding, Rigidity Skin: Normal Musculoskeletal: Normal Psychiatric: Normal Mood Description: Calm Affect: Normal Speech Pattern: Clear, Appropriate - Laboratory and Diagnostics Result Diagrams: 05/18/18 04:30 05/18/18 04:30 Labs: 05/17/18 10:15 Stool Stool Culture - Preliminary 05/17/18 10:15 Stool - Final 05/16/18 09:14 Stool Stool Culture - Preliminary 05/16/18 09:14 Stool - Final 05/18/18 08:47 Stool - Final Laboratory WBC 7.2 X10^3/uL (3.6-10.0) 05/18/18 04:30 RBC 4.08 X10^6/uL (3.5-5.4) 05/18/18 04:30 Hgb 12.8 g/dL (12.0-16.0) 05/18/18 04:30 Hct 37.0 % (36.0-47.0) 05/18/18 04:30 MCV 90.6 fL (80.0-100.0) 05/18/18 04:30 MCH 31.3 pg (27.0-34.0) 05/18/18 04:30 MCHC 34.5 g/dL (33.0-35.0) 05/18/18 04:30 RDW 13.8 % (11.6-16.5) 05/18/18 04:30 Plt Count 285 X10^3/uL (150.0-450.0) 05/18/18 04:30 MPV 8.8 fL (7.4-11.0) 05/18/18 04:30 Neut % (Auto) 65.4 % (42.0-75.0) 05/18/18 04:30 Lymph % (Auto) 25.2 % (21.0-51.0) 05/18/18 04:30 [place] % (Auto) 7.7 % (0.0-13.0) 05/18/18 04:30 Eos % (Auto) 1.2 % (0.9-2.9) 05/18/18 04:30 Baso % (Auto) 0.5 % (0.2-1.0) 05/18/18 04:30 Neut # (Auto) 4.7 x10^3/uL (2.2-4.8) 05/18/18 04:30 Lymph # (Auto) 1.8 X10^3/uL (1.3-2.9) 05/18/18 04:30 [place] # (Auto) 0.6 x10^3/uL (0.3-0.8) 05/18/18 04:30 Eos # (Auto) 0.1 x10^3/uL (0.0-0.2) 05/18/18 04:30 Baso # (Auto) 0.0 X10^3/uL (0.0-0.1) 05/18/18 04:30 Absolute Nucleated RBC 0.0 /100WBC 05/18/18 04:30 Sodium 137 mmol/L (136-145) 05/18/18 04:30 Corrected Sodium TNP 05/18/18 04:30 Potassium 4.0 mmol/L (3.5-5.1) 05/18/18 04:30 Chloride 101 mmol/L (98-107) 05/18/18 04:30 Carbon Dioxide 28.9 mmol/L (21-32) 05/18/18 04:30 BUN 11 mg/dL (7-18) 05/18/18 04:30 Creatinine 0.85 mg/dL (0.55-1.02) 05/18/18 04:30 Est GFR (MDRD) Af Amer > 60 (>60) 05/18/18 04:30 Est GFR (MDRD) Non-Af > 60 (>60) 05/18/18 04:30 Glucose 93 mg/dL (65-99) 05/18/18 04:30 Calcium 8.6 mg/dL (8.5-10.1) 05/18/18 04:30 Corrected Calcium 9.4 mg/dL (8.5-10.1) 05/18/18 04:30 Magnesium 1.9 mg/dL (1.7-2.9) 05/18/18 04:30 Total Bilirubin 0.20 mg/dL (0.2-1.0) 05/18/18 04:30 AST 12 Units/L (15-37) L 05/18/18 04:30 ALT 21 Units/L (12-78) 05/18/18 04:30 Alkaline Phosphatase 87 Units/L (46-116) 05/18/18 04:30 Total Protein 5.9 g/dL (6.4-8.2) L 05/18/18 04:30 Albumin 3.0 g/dL (3.4-5.0) L 05/18/18 04:30 Globulin 2.9 g/dL (2.5-4.5) 05/18/18 04:30 Albumin/Globulin Ratio 1.0 Ratio (1.1-2.1) L 05/18/18 04:30 Specimen Type Random urine 05/15/18 17:11 Urine Color Yellow (YELLOW) 05/15/18 17:11 Urine Appearance Hazy (CLEAR) 05/15/18 17:11 Urine pH 7.0 (5.0 - 8.0) 05/15/18 17:11 Ur Specific [place] 1.010 (1.000-1.030) 05/15/18 17:11 Urine Protein Negative (NEGATIVE) 05/15/18 17:11 Urine Glucose (UA) Negative (NEGATIVE) 05/15/18 17:11 Urine Ketones Negative (NEGATIVE) 05/15/18 17:11 Urine Occult Blood Negative (NEGATIVE) 05/15/18 17:11 Urine Nitrite Negative (NEGATIVE) 05/15/18 17:11 Urine Bilirubin Negative (NEGATIVE) 05/15/18 17:11 Urine Urobilinogen Normal (NORMAL) 05/15/18 17:11 Ur Leukocyte Esterase 2+ (NEGATIVE) 05/15/18 17:11 Urine RBC 3-5 /HPF (NONE SEEN) 05/15/18 17:11 Urine WBC 3-5 /HPF (NONE SEEN) 05/15/18 17:11 Ur Squamous Epith Cells Many /HPF (NEGATIVE) 05/15/18 17:11 Urine Bacteria Trace /HPF (NEGATIVE) 05/15/18 17:11 Hyaline Casts Rare /LPF (NEGATIVE) 05/15/18 17:11 Urine Mucus Few /HPF (NEGATIVE) 05/15/18 17:11 Ur Culture Indicated? No/not indicated 05/15/18 17:11 Stool Description 275g,unformed,soft, 05/17/18 10:15 Stl Occult Blood (IFOB) Positive (NEGATIVE) A 05/17/18 10:15 Stool for White Cells Negative (NEGATIVE) 05/17/18 10:15 Stl C. diff Tox B Gene Negative (NEGATIVE) 05/17/18 10:15 Stl C. diff 027-NAP1-BI Negative (NEGATIVE) 05/17/18 10:15 Cryptosporid parvum Ag Negative (NEGATIVE) 05/17/18 10:15 Giardia lamblia Ag Negative (NEGATIVE) 05/17/18 10:15 - Plan (1) Diarrhea Status: Acute Qualifiers: Diarrhea type: presumed infectious Qualified Code(s): R19.7 - Diarrhea, unspecified Plan: STOOL STUDIES, CONTINUE TO MONITOR (2) Nausea Status: Acute Plan: ZOFRAN 4MG IV PRN, CONTINUE TO MONITOR (3) Abdominal pain Status: Acute Qualifiers: Abdominal location: generalized Qualified Code(s): R10.84 - Generalized abdominal pain Plan: BENTYL MG PO BID, PEPCID IV, PROTONIX IV, CONTINUE TO MONTITOR
--- NOTE | 2018-05-18 19:29 | PCM.PROG ---
Progress Note - Progress Note for Day of Date: 05/17/18 - Subjective Subjective: WAS ADMITTED FOR REFRACTORY DIARRHEA, NAUSEA, AND ABDOMINAL PAIN. TODAY, SHE IS ALERT AND ORIETED, LYING IN BED ON MORNING ROUNDS. SHE CONTINUES WITH COMPLAINTS OF DIARRHEA AND ABDOMINAL CRAMPING TODAY. STAFF REPORTS THAT PATIENT WAS PULLING HER IV POLE BACK TO HER BED LAST NIGHT AND ACCIDENTLY SHUT HER RIGHT MIDDLE FINGER IN THE BATHROOM DOOR. PATIENT WAS NOTED WITH A 1 INCH LACERATION ON HER RIGHT UPPER MIDDLE FINGER. LACERATION WAS CLEANSED AND CLOSED USING DERMABOND. PATIENT WAS NOTED WITH NORMAL RANGE OF MOTION TO FINGER AND HAND. ON EXAMINATION, HEART IS REGULAR IN RATE AND RHYTHM. BILATERAL LUNGS ARE NOTED WITH DIMINISHED LUNG SOUNDS THROUGHOUT. ABDOMEN IS ROUND, SOFT, AND NOTED WITH MODERATE, DIFFUSE TENDERNESS TO PALPATION. HER VITALS THIS MORNING ARE 97.8-69-20-98%-159/66. LABS WERE OBTAINED. ABNORMAL LAB VALUES INCLUDE THE FOLLOWING: POTASSIUM 3.2, GLUCOSE 116, CALCIUM 8.4, MAGNESIUM 1.6. STOOL CULTURES ARE PENDING. WE WILL REPLACE HER POTASSIUM AND MAGNESIUM TODAY. OTHERWISE, WE WILL FOLLOW UP WITH AM LABS AND CONTINUE TO MONITOR PATIENT. - Past Medical Family Social History Past Med/Fam/Surg Hx: No changes since H&P Allergies: Allergies amoxicillin [From Augmentin] Allergy (Verified 11/20/17 14:11) azithromycin [From Zithromax] Allergy (Verified 11/20/17 14:11) budesonide [From Symbicort] Allergy (Verified 11/20/17 14:11) cetirizine [From Zyrtec] Allergy (Verified 11/20/17 14:11) ciprofloxacin [From Cipro] Allergy (Verified 11/20/17 14:11) clavulanic acid [From Augmentin] Allergy (Verified 11/20/17 14:11) clonazepam [From Klonopin] Allergy (Verified 11/20/17 14:11) formoterol [From Symbicort] Allergy (Verified 11/20/17 14:11) meclizine Allergy (Verified 11/20/17 14:11) naproxen Allergy (Verified 11/20/17 14:11) nitrofurantoin [From Macrobid] Allergy (Verified 11/20/17 14:11) omeprazole [From Prilosec] Allergy (Verified 11/20/17 14:11) phenazopyridine [From Pyridium] Allergy (Verified 11/20/17 14:11) sulfamethoxazole [From Bactrim] Allergy (Verified 11/20/17 14:11) tizanidine Allergy (Verified 11/20/17 14:11) trimethoprim [From Bactrim] Allergy (Verified 11/20/17 14:11) - Review of Systems ROS: No change since H&P - Vital Signs and I&O's Vital Signs: Temperature 97.9 F Pulse Rate [Left Brachial] 67 Respiratory Rate 20 Blood Pressure [Right Arm] 148/67 Blood Pressure [Left Arm] 146/64 Blood Pressure 119/58 O2 Sat by Pulse Oximetry 98 Intake and Output: Intake & Output 05/16/18 05/17/18 05/18/18 05/19/18 11:59 11:59 11:59 11:59 Intake Total 920 / 920 1690 / 1690 2540 / 2540 Output Total 0 / 0 Balance 920 / 920 1690 / 1690 2540 / 2540 - Physical Exam Oriented: Normal Eyes: Normal Ear: Normal Nose: Normal Throat: Normal Respiratory: Normal Cardiovascular: Normal : Normal Auscultation: Bowel Sounds: Normal Tenderness: Normal, Diffuse, Moderate. negative: Rebound, Guarding, Rigidity Skin: Normal Musculoskeletal: Normal Psychiatric: Normal Mood Description: Calm Affect: Normal Speech Pattern: Clear, Appropriate - Laboratory and Diagnostics Result Diagrams: 05/18/18 04:30 05/18/18 04:30 Labs: 05/17/18 10:15 Stool Stool Culture - Preliminary 05/17/18 10:15 Stool - Final 05/16/18 09:14 Stool Stool Culture - Preliminary 05/16/18 09:14 Stool - Final 05/18/18 08:47 Stool - Final Laboratory WBC 7.2 X10^3/uL (3.6-10.0) 05/18/18 04:30 RBC 4.08 X10^6/uL (3.5-5.4) 05/18/18 04:30 Hgb 12.8 g/dL (12.0-16.0) 05/18/18 04:30 Hct 37.0 % (36.0-47.0) 05/18/18 04:30 MCV 90.6 fL (80.0-100.0) 05/18/18 04:30 MCH 31.3 pg (27.0-34.0) 05/18/18 04:30 MCHC 34.5 g/dL (33.0-35.0) 05/18/18 04:30 RDW 13.8 % (11.6-16.5) 05/18/18 04:30 Plt Count 285 X10^3/uL (150.0-450.0) 05/18/18 04:30 MPV 8.8 fL (7.4-11.0) 05/18/18 04:30 Neut % (Auto) 65.4 % (42.0-75.0) 05/18/18 04:30 Lymph % (Auto) 25.2 % (21.0-51.0) 05/18/18 04:30 [place] % (Auto) 7.7 % (0.0-13.0) 05/18/18 04:30 Eos % (Auto) 1.2 % (0.9-2.9) 05/18/18 04:30 Baso % (Auto) 0.5 % (0.2-1.0) 05/18/18 04:30 Neut # (Auto) 4.7 x10^3/uL (2.2-4.8) 05/18/18 04:30 Lymph # (Auto) 1.8 X10^3/uL (1.3-2.9) 05/18/18 04:30 [place] # (Auto) 0.6 x10^3/uL (0.3-0.8) 05/18/18 04:30 Eos # (Auto) 0.1 x10^3/uL (0.0-0.2) 05/18/18 04:30 Baso # (Auto) 0.0 X10^3/uL (0.0-0.1) 05/18/18 04:30 Absolute Nucleated RBC 0.0 /100WBC 05/18/18 04:30 Sodium 137 mmol/L (136-145) 05/18/18 04:30 Corrected Sodium TNP 05/18/18 04:30 Potassium 4.0 mmol/L (3.5-5.1) 05/18/18 04:30 Chloride 101 mmol/L (98-107) 05/18/18 04:30 Carbon Dioxide 28.9 mmol/L (21-32) 05/18/18 04:30 BUN 11 mg/dL (7-18) 05/18/18 04:30 Creatinine 0.85 mg/dL (0.55-1.02) 05/18/18 04:30 Est GFR (MDRD) Af Amer > 60 (>60) 05/18/18 04:30 Est GFR (MDRD) Non-Af > 60 (>60) 05/18/18 04:30 Glucose 93 mg/dL (65-99) 05/18/18 04:30 Calcium 8.6 mg/dL (8.5-10.1) 05/18/18 04:30 Corrected Calcium 9.4 mg/dL (8.5-10.1) 05/18/18 04:30 Magnesium 1.9 mg/dL (1.7-2.9) 05/18/18 04:30 Total Bilirubin 0.20 mg/dL (0.2-1.0) 05/18/18 04:30 AST 12 Units/L (15-37) L 05/18/18 04:30 ALT 21 Units/L (12-78) 05/18/18 04:30 Alkaline Phosphatase 87 Units/L (46-116) 05/18/18 04:30 Total Protein 5.9 g/dL (6.4-8.2) L 05/18/18 04:30 Albumin 3.0 g/dL (3.4-5.0) L 05/18/18 04:30 Globulin 2.9 g/dL (2.5-4.5) 05/18/18 04:30 Albumin/Globulin Ratio 1.0 Ratio (1.1-2.1) L 05/18/18 04:30 Specimen Type Random urine 05/15/18 17:11 Urine Color Yellow (YELLOW) 05/15/18 17:11 Urine Appearance Hazy (CLEAR) 05/15/18 17:11 Urine pH 7.0 (5.0 - 8.0) 05/15/18 17:11 Ur Specific [place] 1.010 (1.000-1.030) 05/15/18 17:11 Urine Protein Negative (NEGATIVE) 05/15/18 17:11 Urine Glucose (UA) Negative (NEGATIVE) 05/15/18 17:11 Urine Ketones Negative (NEGATIVE) 05/15/18 17:11 Urine Occult Blood Negative (NEGATIVE) 05/15/18 17:11 Urine Nitrite Negative (NEGATIVE) 05/15/18 17:11 Urine Bilirubin Negative (NEGATIVE) 05/15/18 17:11 Urine Urobilinogen Normal (NORMAL) 05/15/18 17:11 Ur Leukocyte Esterase 2+ (NEGATIVE) 05/15/18 17:11 Urine RBC 3-5 /HPF (NONE SEEN) 05/15/18 17:11 Urine WBC 3-5 /HPF (NONE SEEN) 05/15/18 17:11 Ur Squamous Epith Cells Many /HPF (NEGATIVE) 05/15/18 17:11 Urine Bacteria Trace /HPF (NEGATIVE) 05/15/18 17:11 Hyaline Casts Rare /LPF (NEGATIVE) 05/15/18 17:11 Urine Mucus Few /HPF (NEGATIVE) 05/15/18 17:11 Ur Culture Indicated? No/not indicated 05/15/18 17:11 Stool Description 275g,unformed,soft, 05/17/18 10:15 Stl Occult Blood (IFOB) Positive (NEGATIVE) A 05/17/18 10:15 Stool for White Cells Negative (NEGATIVE) 05/17/18 10:15 Stl C. diff Tox B Gene Negative (NEGATIVE) 05/17/18 10:15 Stl C. diff [id number]-BI Negative (NEGATIVE) 05/17/18 10:15 Cryptosporid parvum Ag Negative (NEGATIVE) 05/17/18 10:15 Giardia lamblia Ag Negative (NEGATIVE) 05/17/18 10:15 - Plan (1) Diarrhea Status: Acute Qualifiers: Diarrhea type: presumed infectious Qualified Code(s): R19.7 - Diarrhea, unspecified Plan: STOOL STUDIES, CONTINUE TO MONITOR (2) Nausea Status: Acute Plan: ZOFRAN 4MG IV PRN, CONTINUE TO MONITOR (3) Abdominal pain Status: Acute Qualifiers: Abdominal location: generalized Qualified Code(s): R10.84 - Generalized abdominal pain Plan: BENTYL MG PO BID, PEPCID IV, PROTONIX IV, CONTINUE TO MONTITOR
--- NOTE | 2018-06-11 00:23 | DR.CARTERD ---
- Discharge Summary for: Discharge Summary for Date of:: 05/18/18 - Admission Date Date of Admission: 05/15/18 - Admission Diagnoses Admission Diagnosis: (1) Abdominal pain (2) C- Diff Diarrhea (3) Nausea - Discharge Date Discharge Date: 05/18/18 - Discharge Diagnoses Discharge Diagnosis: (1) Abdominal pain (2) C- Diff Diarrhea (3) Nausea - Hospital Course Hospital Course: Ms. Abbott presented to the hospital as a direct admission after being seen in the office with reports of continued diarrhea. Patient was recently diagnosed with C-diff and had been on oral Vancomycin and reported no improvement. Symptoms included fatigue, malaise, abdominal pain, diarrhea, nausea and headache. Patient admitted to the hospital for further evaluation and treatment. Medical History: Cataracts, Glaucoma, Hyperlipidemia, Hypertension, Bronchitis, COPD, Gerd, Hiatal Hernia, UTI's, Hypothyroidism, Skin CA. Abnormal Labs: Sodium 133, Corrected Sodium 133, Chloride 95, Glucose 119, AST 12, A/G Ratio 1.0. KUB: No significant abnormality demonstrated. On day two, patient continued with diarrhea and abdominal cramping. Vitals were 97.7-66-20-97%-130/ 67. Stool studies were positive for occult blood, negative for c-diff. We continued treatment and monitored. On day three, patient continued with diarrhea and abdominal cramping. Vitals were 97.8-69-20-98%-159/66. We continued treatment. On day four, patient reported symptoms had greatly improved. She denied abdominal cramping. She reported diarrhea had slowed greatly. We planned for discharge. Instructions for medications and follow up were discussed with patient and family, both voiced understanding. Patient discharged home in stable condition with family. - Discharge Medications Discharge Medications: Home Medication List colesevelam [WelChol] 1 tab PO TID PRN 05/15/18 [History] metformin 250 mg PO DAILY 05/15/18 [History] metoprolol tartrate 100 mg PO BID 05/15/18 [History] ondansetron HCl 2 - 4 mg PO QID PRN 05/15/18 [History] temazepam 30 mg PO HS 05/15/18 [History] vancomycin 125 mg PO QID 05/15/18 [History] dicyclomine 10 mg PO QID #40 cap 06/18/18 [Rx] diphenoxylate-atropine [Lomotil] 1 tab PO QID #20 tab 05/18/18 [Rx] simethicone [Gas-X Extra Strength] 125 mg PO QID #20 cap 05/18/18 [Rx] Prescriptions: dicyclomine [place] diphenoxylate-atropine [Lomotil] [place] simethicone [Gas-X Extra Strength] [place] Home medications Olmesartan Medoxomil-Hydrochlo [Benicar HCT 40 mg/25 mg] 1 tab PO DAILY pantoprazole [Protonix] 40 mg PO BID 10/05/16 ranitidine HCl 150 mg PO BID #60 tab 10/05/16 Saccharomyces boulardii [Probiotic (S.boulardii)] 180 mg PO BID 11/20/17 allopurinol 100 mg PO DAILY 11/20/17 guaifenesin [Mucinex] 1 tab PO DAILY 11/20/17 levothyroxine 1 tab PO DAILY 11/20/17 - Discharge Disposition Discharge Disposition: Patient is to follow up in our office in one week.
== END 2018-05-18 11:15 | disposition home or self-care (01) ==
LOC: MED/SURG
PROVIDERS: ADMIT Internal Medicine; ATTEND Internal Medicine
DX: R19.5 Other fecal abnormalities; R10.84 Generalized abdominal pain; A04.72 Enterocolitis due to Clostridium difficile, not specified as recurrent; R11.0 Nausea; E86.0 Dehydration; I10 Essential (primary) hypertension
CPT/HCPCS: 36415; 74000; 74018; 80048; 80053; 81001; 82270; 83630; 83735; 84132; 85025; 87045; 87328; 87329; 87427; 87449; 87493; 87899; A4222; C9113; S0028; G0378; J2405; J3475; J7030; J7050; J8499

== ENCOUNTER 2018-07-13 09:19 | Inpatient (IN) ==
[2018-07-13] MEDS ORDERED: PHARMACY CONSULT - DOSE _____ XX SCH (12:08)
[2018-07-13 12:36] LABS: BASOPHILS # (AUTO) 0.1 X10^3/uL (0.0-0.1); BASOPHILS % (AUTO) 0.7 % (0.2-1.0); EOSINOPHILS % (AUTO) 0.4 % (0.9-2.9); HEMATOCRIT 40.9 % (36.0-47.0); HEMOGLOBIN 14.3 g/dL (12.0-16.0); LYMPHOCYTES # (AUTO) 1.6 X10^3/uL (1.3-2.9); LYMPHOCYTES % (AUTO) 19.2 % (21.0-51.0); MEAN CORPUSCULAR HEMOGLOBIN 31.1 pg (27.0-34.0); MEAN CORPUSCULAR VOLUME 88.8 fL (80.0-100.0); MEAN PLATELET VOLUME 8.4 fL (7.4-11.0); MONOCYTES # (AUTO) 0.7 x10^3/uL (0.3-0.8); MONOCYTES % (AUTO) 7.7 % (0.0-13.0); NEUTROPHILS # (AUTO) 6.1 x10^3/uL (2.2-4.8); PLATELET COUNT 388 X10^3/uL (150.0-450.0); RED BLOOD COUNT 4.61 X10^6/uL (3.5-5.4); RED CELL DISTRIBUTION WIDTH 13.1 % (11.6-16.5); WHITE BLOOD COUNT 8.5 X10^3/uL (3.6-10.0)
[2018-07-13 12:50] LABS: ALANINE AMINOTRANSFERASE 21 Units/L (12-78); ALBUMIN 3.7 g/dL (3.4-5.0); ALKALINE PHOSPHATASE 88 Units/L (46-116); ASPARTATE AMINO TRANSFERASE 14 Units/L (15-37); BLOOD UREA NITROGEN 8 mg/dL (7-18); CALCIUM 8.9 mg/dL (8.5-10.1); CARBON DIOXIDE 31.8 mmol/L (21-32); CHLORIDE 94 mmol/L (98-107); COR NA(FOR HYPERGLY) 130 mmol/L (136-145); CREATININE 0.85 mg/dL (0.55-1.02); SODIUM 130 mmol/L (136-145); TOTAL PROTEIN 6.8 g/dL (6.4-8.2); eGFR NON BLACK RACES > 60 (>60)
[2018-07-13] MEDS ORDERED: CEFTIN PO SCH (13:00)
[2018-07-13 13:27] VITALS: BMI 28.2
[2018-07-13] MEDS: NS 1000 ML 1,000 ML IV SCH (13:53)
[2018-07-13] MEDS: ROCEPHIN VIAL 1 GRAM 1 G in NS 100 ML IV + SPIKE MINIBAG* 100 ML IV SCH (13:54)
[2018-07-13 14:28] LABS: BILIRUBIN,URINE NEGATIVE (NEGATIVE); BLOOD/HEMOGLOBIN,URINE NEGATIVE (NEGATIVE); GLUCOSE, URINE NEGATIVE (NEGATIVE); KETONES,URINE NEGATIVE (NEGATIVE); LEUKOCYTE ESTERASE ,URINE 1+ (NEGATIVE); NITRITES,URINE NEGATIVE (NEGATIVE); PROTEIN,URINE NEGATIVE (NEGATIVE); UROBILINOGEN,URINE NORMAL (NORMAL)
[2018-07-13 14:39] LABS: APPEARANCE,URINE CLEAR (CLEAR); COLOR,URINE YELLOW (YELLOW)
[2018-07-13 14:40] LABS: BACTERIA,URINE TRACE /HPF (NEGATIVE); MUCUS,URINE RARE /HPF (NEGATIVE); RBC,URINE 0-2 /HPF (NONE SEEN); SQUAMOUS EPITHELIAL CELL,UR FEW /HPF (NEGATIVE)
[2018-07-13] MEDS ORDERED: DULCOLAX TAB EC 5 MG PO ONE ×2 (17:00→21:00)
[2018-07-13] MEDS ORDERED: NULYTELY or GO-LYTELY PO SCH (17:00)
--- NOTE | 2018-07-13 17:06 | DR.CONSULT ---
Consult - Consultation for Day of: Date: 07/13/18 - Chief Complaint Chief Complaint: Patient referred for change in bowel habits and qustionable rectal mass. - History of Present Illness History of Present Illness: Patient is a 83yo female who was referred for change in bowel habits and qustionable rectal mass. Patient with complaints of dysphagia, dyspepsia, nausea, constipation that has been going on for 2 weeks which is a change in bowel habits for her she normally has diarrhea. She states she also feels somthing abnormal in her rectum when having a bowel movement. She denies vomiting, abdominal pain, diarrhea, melena and hematochezia. Last Colonoscopy was 10/2015 which showed sigmoid diverticulosis, internal hemorrhoids, 1cm tubular adenomatous polyp in the transvese colon and 0.5cm tubular adenomatous polyp in descending colon. Last EGD was 05/2015 which showed esophageal stricture, gastric polyps, antral gastritis and distal esophagitis. - Past Medical History Past Medical History: GERD, Hypertension - Past Surgical History Surgical History: Cholecystectomy, Hysterectomy, Ortho Surgery - Family History Family Medical History: Diabetes Mellitus, Hypertension - Social History Does patient currently use any type of tobacco product: No Have you used tobacco products in the last 12 months: No Type of Tobacco Use: None Does any household member use tobacco: No Alcohol Use: None Drug Use: None - Medications Home Medications: amoxicillin [From Augmentin] Allergy (Verified 11/20/17 14:11) azithromycin [From Zithromax] Allergy (Verified 11/20/17 14:11) budesonide [From Symbicort] Allergy (Verified 11/20/17 14:11) cetirizine [From Zyrtec] Allergy (Verified 11/20/17 14:11) ciprofloxacin [From Cipro] Allergy (Verified 11/20/17 14:11) clavulanic acid [From Augmentin] Allergy (Verified 11/20/17 14:11) clonazepam [From Klonopin] Allergy (Verified 11/20/17 14:11) formoterol [From Symbicort] Allergy (Verified 11/20/17 14:11) meclizine Allergy (Verified 11/20/17 14:11) naproxen Allergy (Verified 11/20/17 14:11) nitrofurantoin [From Macrobid] Allergy (Verified 11/20/17 14:11) omeprazole [From Prilosec] Allergy (Verified 11/20/17 14:11) phenazopyridine [From Pyridium] Allergy (Verified 11/20/17 14:11) sulfamethoxazole [From Bactrim] Allergy (Verified 11/20/17 14:11) tizanidine Allergy (Verified 11/20/17 14:11) trimethoprim [From Bactrim] Allergy (Verified 11/20/17 14:11) - Review of Systems Gastrointestinal: Nausea, Constipation, Other (dysphagia, dyspepsia, change in bowel habits). denies: Vomiting, Abdominal Pain, Diarrhea, Melena, Hematochezia - Physical Exam Vital Signs: Temperature 97.6 F Pulse Rate [Left Brachial] 66 Respiratory Rate 20 Blood Pressure [Right Arm] 148/67 Blood Pressure [Left Arm] 136/61 Blood Pressure 148/67 O2 Sat by Pulse Oximetry 96 Oriented: Normal Eyes: Normal Ear: Normal Nose: Normal Throat: Normal Respiratory: Clear Throughout Cardiovascular: Normal : Normal Auscultation: Bowel Sounds: Normal Palpation: Normal Tenderness: Normal Skin: Normal Musculoskeletal: Normal Psychiatric: Normal Mood Description: Calm Affect: Normal Speech Pattern: Clear - Plan Plan: Assessment. 1. Constipation, change in bowel habits r/o colonic adenocarcinoma. 2. Dysphagia r/o esophageal stricture, esphageal adenocarcinoma. 3. dyspepsia, nausea r/o gastric ulcer, gastric adenocarcinoma. Plan. 1. Colon tomorrow, clear liquids and prep today, NPO past midnight. 2. EGD on , protonix IV. Plan reviewed with Dr. Torrez - Allergies Allergies/Adverse Reactions: Allergies Allergy/AdvReac Type Severity Reaction Status Date / Time amoxicillin [From Augmentin] Allergy Verified 11/20/17 14:11 azithromycin [From Zithromax] Allergy Verified 11/20/17 14:11 budesonide [From Symbicort] Allergy Verified 11/20/17 14:11 cetirizine [From Zyrtec] Allergy Verified 11/20/17 14:11 ciprofloxacin [From Cipro] Allergy Verified 11/20/17 14:11 clavulanic acid Allergy Verified 11/20/17 14:11 [From Augmentin] clonazepam [From Klonopin] Allergy Verified 11/20/17 14:11 formoterol [From Symbicort] Allergy Verified 11/20/17 14:11 meclizine Allergy Verified 11/20/17 14:11 naproxen Allergy Verified 11/20/17 14:11 nitrofurantoin Allergy Verified 11/20/17 14:11 [From Macrobid] omeprazole [From Prilosec] Allergy Verified 11/20/17 14:11 phenazopyridine Allergy Verified 11/20/17 14:11 [From Pyridium] sulfamethoxazole Allergy Verified 11/20/17 14:11 [From Bactrim] tizanidine Allergy Verified 11/20/17 14:11 trimethoprim [From Bactrim] Allergy Verified 11/20/17 14:11
[2018-07-13] MEDS: NYSTATIN SUSP MT SCH ×2 (18:25→20:25)
[2018-07-13] MEDS: LOVENOX INJ 40 MG SYR SC SCH (18:28)
[2018-07-13] MEDS: PROTONIX INJ 40 MG VIAL IVP SCH (20:25)
[2018-07-14] MEDS: NS 1000 ML 1,000 ML IV SCH ×2 (02:18→21:15)
[2018-07-14 06:13] LABS: BASOPHILS % (AUTO) 0.3 % (0.2-1.0); EOSINOPHILS # (AUTO) 0.1 x10^3/uL (0.0-0.2); EOSINOPHILS % (AUTO) 0.7 % (0.9-2.9); HEMATOCRIT 36.3 % (36.0-47.0); HEMOGLOBIN 12.9 g/dL (12.0-16.0); LYMPHOCYTES # (AUTO) 1.6 X10^3/uL (1.3-2.9); LYMPHOCYTES % (AUTO) 21.4 % (21.0-51.0); MEAN CORPUSCULAR HEMOGLOBIN 31.5 pg (27.0-34.0); MEAN CORPUSCULAR HGB CONC 35.5 g/dL (33.0-35.0); MEAN CORPUSCULAR VOLUME 88.6 fL (80.0-100.0); MEAN PLATELET VOLUME 8.6 fL (7.4-11.0); MONOCYTES # (AUTO) 0.7 x10^3/uL (0.3-0.8); NEUTROPHILS % (AUTO) 67.6 % (42.0-75.0); PLATELET COUNT 280 X10^3/uL (150.0-450.0); RED CELL DISTRIBUTION WIDTH 13.1 % (11.6-16.5); WHITE BLOOD COUNT 7.4 X10^3/uL (3.6-10.0)
[2018-07-14 06:21] LABS: ALANINE AMINOTRANSFERASE 18 Units/L (12-78); ALKALINE PHOSPHATASE 70 Units/L (46-116); ASPARTATE AMINO TRANSFERASE 11 Units/L (15-37); BLOOD UREA NITROGEN 7 mg/dL (7-18); CALCIUM 8.3 mg/dL (8.5-10.1); CARBON DIOXIDE 30.8 mmol/L (21-32); CHLORIDE 98 mmol/L (98-107); COR CA(FOR HYPOALB) 9.1 mg/dL (8.5-10.1); COR NA(FOR HYPERGLY) 133 mmol/L (136-145); CREATININE 0.68 mg/dL (0.55-1.02); SODIUM 133 mmol/L (136-145); TOTAL PROTEIN 5.6 g/dL (6.4-8.2); eGFR NON BLACK RACES > 60 (>60)
[2018-07-14] MEDS ORDERED: K-RIDER 10 MEQ/NS 100 ML 10 MEQ/100 ML BAG IV PRN (06:27)
[2018-07-14] MEDS ORDERED: POTASSIUM CHL 60 MEQ/NS 0.45% 500 ML IV PRN (06:27)
[2018-07-14] MEDS ORDERED: K-LYTE EFFERVESCENT PO PRN (06:27)
[2018-07-14] MEDS ORDERED: POTASSIUM CHLORIDE LIQ 20 MEQ UDC PO PRN (06:27)
[2018-07-14] MEDS ORDERED: POTASSIUM CHL 40 MEQ/NS 0.45% 500 ML IV PRN (06:27)
[2018-07-14 07:49] LABS: ERYTHROCYTE SEDIMENTATION RATE 6 MM/HOUR (0-20)
[2018-07-14] MEDS: ROCEPHIN VIAL 1 GRAM 1 G in NS 100 ML IV + SPIKE MINIBAG* 100 ML IV SCH (09:38)
[2018-07-14] MEDS: NYSTATIN SUSP MT SCH ×3 (09:38→20:13)
[2018-07-14] MEDS: PROTONIX INJ 40 MG VIAL IVP SCH ×2 (09:38→20:12)
[2018-07-14] MEDS: LOVENOX INJ 40 MG SYR SC SCH (12:49)
[2018-07-14] MEDS ORDERED: NS 500 ML IV 500 ML IV ONE (14:17)
[2018-07-14] MEDS ORDERED: XYLOCAINE-MPF 1% ONE (14:22)
[2018-07-14] MEDS ORDERED: DIPRIVAN VIAL 20 ML ONE (14:22)
[2018-07-14] MEDS ORDERED: DIPRIVAN VIAL 10 ML ONE (14:44)
[2018-07-14] MEDS ORDERED: GLUCOPHAGE ONE (16:19)
[2018-07-14] MEDS: ZYLOPRIM PO SCH (16:50)
[2018-07-14] MEDS: WELCHOL PO SCH ×2 (16:51→21:15)
[2018-07-14] MEDS: ZANTAC PO SCH ×2 (16:51→20:13)
[2018-07-14] MEDS: SYNTHROID 50 mcg TAB PO SCH (16:51)
[2018-07-14] MEDS: GLUCOPHAGE PO SCH (16:52)
[2018-07-14] MEDS: MAGNESIUM SULFATE 1 GRAM/100 mL PREMIX 1 GM/100 ML BAG IV PRN ×2 (20:11→21:15)
[2018-07-14] MEDS: RESTORIL CAP 30 MG PO SCH (20:13)
[2018-07-15] MEDS: NS 1000 ML 1,000 ML IV SCH ×3 (04:55→21:02)
[2018-07-15 05:14] LABS: BASOPHILS % (AUTO) 0.9 % (0.2-1.0); EOSINOPHILS # (AUTO) 0.1 x10^3/uL (0.0-0.2); EOSINOPHILS % (AUTO) 2.1 % (0.9-2.9); HEMATOCRIT 35.7 % (36.0-47.0); HEMOGLOBIN 12.6 g/dL (12.0-16.0); LYMPHOCYTES # (AUTO) 1.2 X10^3/uL (1.3-2.9); LYMPHOCYTES % (AUTO) 26.8 % (21.0-51.0); MEAN CORPUSCULAR HEMOGLOBIN 31.7 pg (27.0-34.0); MEAN CORPUSCULAR HGB CONC 35.4 g/dL (33.0-35.0); MEAN CORPUSCULAR VOLUME 89.5 fL (80.0-100.0); MEAN PLATELET VOLUME 10.6 fL (7.4-11.0); MONOCYTES # (AUTO) 0.5 x10^3/uL (0.3-0.8); MONOCYTES % (AUTO) 10.5 % (0.0-13.0); NEUTROPHILS # (AUTO) 2.8 x10^3/uL (2.2-4.8); NEUTROPHILS % (AUTO) 59.7 % (42.0-75.0); PLATELET COUNT 89 X10^3/uL (150.0-450.0); RED BLOOD COUNT 3.99 X10^6/uL (3.5-5.4); RED CELL DISTRIBUTION WIDTH 13.3 % (11.6-16.5); WHITE BLOOD COUNT 4.7 X10^3/uL (3.6-10.0)
[2018-07-15] MEDS: WELCHOL PO SCH ×3 (05:38→21:01)
[2018-07-15] MEDS: SYNTHROID 50 mcg TAB PO SCH (06:34)
[2018-07-15 06:36] LABS: ALANINE AMINOTRANSFERASE 17 Units/L (12-78); ALBUMIN 2.8 g/dL (3.4-5.0); ALKALINE PHOSPHATASE 72 Units/L (46-116); ASPARTATE AMINO TRANSFERASE 9 Units/L (15-37); BLOOD UREA NITROGEN 5 mg/dL (7-18); CALCIUM 7.7 mg/dL (8.5-10.1); CARBON DIOXIDE 27.7 mmol/L (21-32); CHLORIDE 105 mmol/L (98-107); COR CA(FOR HYPOALB) 8.7 mg/dL (8.5-10.1); COR NA(FOR HYPERGLY) 138 mmol/L (136-145); CREATININE 0.68 mg/dL (0.55-1.02); MAGNESIUM 2.1 mg/dL (1.7-2.9); SODIUM 138 mmol/L (136-145); TOTAL PROTEIN 5.3 g/dL (6.4-8.2); eGFR NON BLACK RACES > 60 (>60)
[2018-07-15] MEDS ORDERED: GLUCOPHAGE ONE (08:58)
[2018-07-15] MEDS: NYSTATIN SUSP MT SCH ×4 (09:07→21:01)
[2018-07-15] MEDS: ZYLOPRIM PO SCH (09:07)
[2018-07-15] MEDS: LOVENOX INJ 40 MG SYR SC SCH (09:07)
[2018-07-15] MEDS: ZANTAC PO SCH ×2 (09:07→21:01)
[2018-07-15] MEDS: GLUCOPHAGE PO SCH (09:07)
[2018-07-15] MEDS: PROTONIX INJ 40 MG VIAL IVP SCH ×2 (09:08→21:00)
[2018-07-15] MEDS: ROCEPHIN VIAL 1 GRAM 1 G in NS 100 ML IV + SPIKE MINIBAG* 100 ML IV SCH (09:08)
--- NOTE | 2018-07-15 11:37 | PCM.PROG ---
Progress Note - Progress Note for Day of Date of Exam: 07/14/18 - Subjective Subjective: WAS ADMITTED FOR A URINARY TRACT INFECTION AND A POSSIBLE RECTAL MASS. SHE REPORTS A CHANGE IN BOWEL HABITS. SHE REPORTS DYSPHAGIA, DYSPEPSIA, NAUSEA, AND CONSTIPATION FOR TWO WEEK, WHEREAS SHE USUALLY HAS DIARRHEA. TODAY, SHE IS ALERT AND ORIENTED, LYING IN BED ON MORNING ROUNDS. ON EXAMINATION, HEART IS REGULAR IN RATE AND RHYTHM. BILATERAL LUNGS ARE NOTED WITH DIMINISHED LUNG SOUNDS THROUGHOUT. ABDOMEN IS ROUND, SOFT, AND NOTED WITH MILD, DIFFUSE TENDERNESS. NORMAL BOWEL SOUNDS NOTED IN ALL QUADRANTS. HER VITALS TODAY ARE 97.4-71-18-97%-147/65. LABS WERE OBTAINED. ABNORMAL LABS INCLUDE THE FOLLOWING: SODIUM 133, POTASSIUM 3.2, GLUCOSE 112, CALCIUM 8.3, MAGNESIUM 1.6, AST 11, TOTAL PROTEIN 5.6, ABLUMIN 3.0. SHE WAS STARTED ON FORTAZ IV FOR UTI AND CONTINUES ON NORMAL SALINE AT 75ML/HR. TODAY, WE WILL CONTINUE WITH CURRENT PLAN OF CARE. WILL CONSULT WITH PATIENT TODAY. OTHERWISE, WE WILL FOLLOW UP WITH AM LABS AND CONTINUE TO MONITOR PATIENT. - Past Medical Family Social History Past Med/Fam/Surg Hx: No changes since H&P Allergies: Allergies amoxicillin [From Augmentin] Allergy (Verified 11/20/17 14:11) azithromycin [From Zithromax] Allergy (Verified 11/20/17 14:11) budesonide [From Symbicort] Allergy (Verified 11/20/17 14:11) cetirizine [From Zyrtec] Allergy (Verified 11/20/17 14:11) ciprofloxacin [From Cipro] Allergy (Verified 11/20/17 14:11) clavulanic acid [From Augmentin] Allergy (Verified 11/20/17 14:11) clonazepam [From Klonopin] Allergy (Verified 11/20/17 14:11) formoterol [From Symbicort] Allergy (Verified 11/20/17 14:11) meclizine Allergy (Verified 11/20/17 14:11) naproxen Allergy (Verified 11/20/17 14:11) nitrofurantoin [From Macrobid] Allergy (Verified 11/20/17 14:11) omeprazole [From Prilosec] Allergy (Verified 11/20/17 14:11) phenazopyridine [From Pyridium] Allergy (Verified 11/20/17 14:11) sulfamethoxazole [From Bactrim] Allergy (Verified 11/20/17 14:11) tizanidine Allergy (Verified 11/20/17 14:11) trimethoprim [From Bactrim] Allergy (Verified 11/20/17 14:11) - Review of Systems ROS: No change since H&P - Vital Signs and I&O's Vital Signs: Temperature 97.5 F Pulse Rate [Left Brachial] 78 Respiratory Rate 20 Blood Pressure [Right Arm] 115/67 Blood Pressure [Left Arm] 143/65 Blood Pressure 148/67 O2 Sat by Pulse Oximetry 99 Intake and Output: Intake & Output 07/12/18 07/13/18 07/14/18 07/15/18 11:59 11:59 11:59 11:59 Intake Total 1600 / 1600 600 / 600 Balance 1600 / 1600 600 / 600 - Physical Exam Oriented: Normal Eyes: Normal Ear: Normal Nose: Normal Throat: Normal Respiratory: Generalized, Diminished Cardiovascular: Normal : Normal Auscultation: Bowel Sounds: Normal Palpation: Normal Tenderness: Diffuse, Mild Skin: Normal Musculoskeletal: Normal Psychiatric: Normal Mood Description: Calm Affect: Normal Speech Pattern: Clear, Appropriate - Laboratory and Diagnostics Result Diagrams: 07/15/18 04:50 07/15/18 06:00 Labs: 07/13/18 13:40 Urine,Clean Catch Urine Culture - Final Laboratory WBC 4.7 X10^3/uL (3.6-10.0) 07/15/18 04:50 RBC 3.99 X10^6/uL (3.5-5.4) 07/15/18 04:50 Hgb 12.6 g/dL (12.0-16.0) 07/15/18 04:50 Hct 35.7 % (36.0-47.0) L 07/15/18 04:50 MCV 89.5 fL (80.0-100.0) 07/15/18 04:50 MCH 31.7 pg (27.0-34.0) 07/15/18 04:50 MCHC 35.4 g/dL (33.0-35.0) H 07/15/18 04:50 RDW 13.3 % (11.6-16.5) 07/15/18 04:50 Plt Count 89 X10^3/uL (150.0-450.0) L 07/15/18 04:50 MPV 10.6 fL (7.4-11.0) 07/15/18 04:50 Neut % (Auto) 59.7 % (42.0-75.0) 07/15/18 04:50 Lymph % (Auto) 26.8 % (21.0-51.0) 07/15/18 04:50 [place] % (Auto) 10.5 % (0.0-13.0) 07/15/18 04:50 Eos % (Auto) 2.1 % (0.9-2.9) 07/15/18 04:50 Baso % (Auto) 0.9 % (0.2-1.0) 07/15/18 04:50 Neut # (Auto) 2.8 x10^3/uL (2.2-4.8) 07/15/18 04:50 Lymph # (Auto) 1.2 X10^3/uL (1.3-2.9) L 07/15/18 04:50 [place] # (Auto) 0.5 x10^3/uL (0.3-0.8) 07/15/18 04:50 Eos # (Auto) 0.1 x10^3/uL (0.0-0.2) 07/15/18 04:50 Baso # (Auto) 0.0 X10^3/uL (0.0-0.1) 07/15/18 04:50 Absolute Nucleated RBC 0.9 /100WBC 07/15/18 04:50 ESR 6 MM/HOUR (0-20) 07/14/18 04:40 Sodium 138 mmol/L (136-145) 07/15/18 06:00 Corrected Sodium 138 mmol/L (136-145) 07/15/18 06:00 Potassium 3.7 mmol/L (3.5-5.1) 07/15/18 06:00 Chloride 105 mmol/L (98-107) 07/15/18 06:00 Carbon Dioxide 27.7 mmol/L (21-32) 07/15/18 06:00 BUN 5 mg/dL (7-18) L 07/15/18 06:00 Creatinine 0.68 mg/dL (0.55-1.02) 07/15/18 06:00 Est GFR (MDRD) Af Amer > 60 (>60) 07/15/18 06:00 Est GFR (MDRD) Non-Af > 60 (>60) 07/15/18 06:00 Glucose 111 mg/dL (65-99) H 07/15/18 06:00 Calcium 7.7 mg/dL (8.5-10.1) L 07/15/18 06:00 Corrected Calcium 8.7 mg/dL (8.5-10.1) 07/15/18 06:00 Magnesium 2.1 mg/dL (1.7-2.9) 07/15/18 06:00 Total Bilirubin 0.20 mg/dL (0.2-1.0) 07/15/18 06:00 AST 9 Units/L (15-37) L 07/15/18 06:00 ALT 17 Units/L (12-78) 07/15/18 06:00 Alkaline Phosphatase 72 Units/L (46-116) 07/15/18 06:00 Total Protein 5.3 g/dL (6.4-8.2) L 07/15/18 06:00 Albumin 2.8 g/dL (3.4-5.0) L 07/15/18 06:00 Globulin 2.5 g/dL (2.5-4.5) 07/15/18 06:00 Albumin/Globulin Ratio 1.1 Ratio (1.1-2.1) 07/15/18 06:00 Specimen Type Clean catch urine 07/13/18 13:40 Urine Color Yellow (YELLOW) 07/13/18 13:40 Urine Appearance Clear (CLEAR) 07/13/18 13:40 Urine pH 7.0 (5.0 - 8.0) 07/13/18 13:40 Ur Specific [place] 1.010 (1.000-1.030) 07/13/18 13:40 Urine Protein Negative (NEGATIVE) 07/13/18 13:40 Urine Glucose (UA) Negative (NEGATIVE) 07/13/18 13:40 Urine Ketones Negative (NEGATIVE) 07/13/18 13:40 Urine Occult Blood Negative (NEGATIVE) 07/13/18 13:40 Urine Nitrite Negative (NEGATIVE) 07/13/18 13:40 Urine Bilirubin Negative (NEGATIVE) 07/13/18 13:40 Urine Urobilinogen Normal (NORMAL) 07/13/18 13:40 Ur Leukocyte Esterase 1+ (NEGATIVE) 07/13/18 13:40 Urine RBC 0-2 /HPF (NONE SEEN) 07/13/18 13:40 Urine WBC 0-2 /HPF (NONE SEEN) 07/13/18 13:40 Ur Squamous Epith Cells Few /HPF (NEGATIVE) 07/13/18 13:40 Urine Bacteria Trace /HPF (NEGATIVE) 07/13/18 13:40 Urine Mucus Rare /HPF (NEGATIVE) 07/13/18 13:40 Ur Culture Indicated? Yes/culture set up 07/13/18 13:40 Tissue Pathology To follow 07/14/18 14:56 - Plan (1) Urinary tract infection Status: Acute Qualifiers: Urinary tract infection type: acute cystitis Hematuria presence: without hematuria Qualified Code(s): N30.00 - Acute cystitis without hematuria Plan: FORTAZ 1GM IV TID, CONTINUE TO MONITOR (2) Bowel habit changes Status: Acute (3) Rectal pain Status: Acute
[2018-07-15] MEDS: RESTORIL CAP 30 MG PO SCH ×2 (21:01→21:08)
[2018-07-16 05:15] LABS: BASOPHILS % (AUTO) 0.7 % (0.2-1.0); EOSINOPHILS # (AUTO) 0.2 x10^3/uL (0.0-0.2); EOSINOPHILS % (AUTO) 2.9 % (0.9-2.9); HEMATOCRIT 34.3 % (36.0-47.0); HEMOGLOBIN 11.8 g/dL (12.0-16.0); LYMPHOCYTES # (AUTO) 1.4 X10^3/uL (1.3-2.9); LYMPHOCYTES % (AUTO) 21.8 % (21.0-51.0); MEAN CORPUSCULAR HEMOGLOBIN 30.8 pg (27.0-34.0); MEAN CORPUSCULAR HGB CONC 34.5 g/dL (33.0-35.0); MEAN CORPUSCULAR VOLUME 89.5 fL (80.0-100.0); MEAN PLATELET VOLUME 8.2 fL (7.4-11.0); MONOCYTES # (AUTO) 0.5 x10^3/uL (0.3-0.8); MONOCYTES % (AUTO) 8.6 % (0.0-13.0); NEUTROPHILS # (AUTO) 4.1 x10^3/uL (2.2-4.8); PLATELET COUNT 290 X10^3/uL (150.0-450.0); RED BLOOD COUNT 3.84 X10^6/uL (3.5-5.4); RED CELL DISTRIBUTION WIDTH 13.3 % (11.6-16.5); WHITE BLOOD COUNT 6.3 X10^3/uL (3.6-10.0)
[2018-07-16] MEDS: NS 1000 ML 1,000 ML IV SCH (05:29)
[2018-07-16 05:31] LABS: ALANINE AMINOTRANSFERASE 18 Units/L (12-78); ALBUMIN 2.8 g/dL (3.4-5.0); ALKALINE PHOSPHATASE 76 Units/L (46-116); ASPARTATE AMINO TRANSFERASE 9 Units/L (15-37); BLOOD UREA NITROGEN 6 mg/dL (7-18); CALCIUM 8.3 mg/dL (8.5-10.1); CARBON DIOXIDE 29.2 mmol/L (21-32); CHLORIDE 106 mmol/L (98-107); COR CA(FOR HYPOALB) 9.3 mg/dL (8.5-10.1); COR NA(FOR HYPERGLY) 141 mmol/L (136-145); CREATININE 0.69 mg/dL (0.55-1.02); SODIUM 140 mmol/L (136-145); TOTAL PROTEIN 5.5 g/dL (6.4-8.2); eGFR NON BLACK RACES > 60 (>60)
[2018-07-16] MEDS: WELCHOL PO SCH ×4 (05:32→21:34)
[2018-07-16] MEDS ORDERED: ZOFRAN INJ 4 MG VIAL IVP PRN (07:44)
[2018-07-16] MEDS: ROCEPHIN VIAL 1 GRAM 1 G in NS 100 ML IV + SPIKE MINIBAG* 100 ML IV SCH (09:07)
[2018-07-16] MEDS: PROTONIX INJ 40 MG VIAL IVP SCH ×2 (09:08→21:34)
[2018-07-16] MEDS: GLUCOPHAGE PO SCH ×2 (09:11→13:30)
[2018-07-16] MEDS: ZYLOPRIM PO SCH ×2 (09:11→13:30)
[2018-07-16] MEDS: ZANTAC PO SCH ×3 (09:11→21:33)
[2018-07-16] MEDS: NYSTATIN SUSP MT SCH ×3 (09:12→21:37)
[2018-07-16] MEDS: SYNTHROID 50 mcg TAB PO SCH ×2 (09:12→13:29)
[2018-07-16] MEDS: LOVENOX INJ 40 MG SYR SC SCH (09:25)
--- NOTE | 2018-07-16 10:16 | PCM.PROG ---
Progress Note - Progress Note for Day of Date of Exam: 07/15/18 - Subjective Subjective: WAS ADMITTED FOR A URINARY TRACT INFECTION AND A POSSIBLE RECTAL MASS WITH REPORTED CHANGES IN BOWEL HABITS. TODAY, SHE IS ALERT AND ORIENTED, LYING IN BED ON MORNING ROUNDS. SHE CONTINUES WITH COMPLAINTS OF DIFFUSE ABDOMINAL PAIN WELL RECTAL PAIN AND PRESSURE AT TIMES. ON EXAMINATION, HEART IS REGULAR IN RATE AND RHYTHM. BILATERAL LUNGS ARE NOTED WITH DIMINISHED LUNG SOUNDS THROUGHOUT. ABDOMEN IS ROUND, SOFT, AND NOTED WITH MILD, DIFFUSE TENDERNESS. NORMAL BOWEL SOUNDS NOTED IN ALL QUADRANTS. HER VITALS TODAY ARE 97.4-71-18-97%-147/65. LABS WERE OBTAINED. ABNORMAL LABS INCLUDE THE FOLLOWING: HCT 35.7, BUN 5, GLUCOSE 111, CALCIUM 7.7, AST 9, TOTAL PROTEIN 5.3, ALBUMIN 2.8. SHE HAD A COLONOSCOPY YESTERDAY WHICH REVEALED: SIGMOID DIVERTICULOSIS, COLON POLYP, AND INTERNAL HEMORRHOIDS. SHE IS CURRENTLY ON FORTAZ IV FOR UTI AND CONTINUES ON NORMAL SALINE AT 75ML/HR. TODAY, WE WILL CONTINUE WITH CURRENT PLAN OF CARE. PLANS FOR AN EGD ON FRIDAY. OTHERWISE, WE WILL FOLLOW UP WITH AM LABS AND CONTINUE TO MONITOR PATIENT. - Past Medical Family Social History Past Med/Fam/Surg Hx: No changes since H&P Allergies: Allergies amoxicillin [From Augmentin] Allergy (Verified 11/20/17 14:11) azithromycin [From Zithromax] Allergy (Verified 11/20/17 14:11) budesonide [From Symbicort] Allergy (Verified 11/20/17 14:11) cetirizine [From Zyrtec] Allergy (Verified 11/20/17 14:11) ciprofloxacin [From Cipro] Allergy (Verified 11/20/17 14:11) clavulanic acid [From Augmentin] Allergy (Verified 11/20/17 14:11) clonazepam [From Klonopin] Allergy (Verified 11/20/17 14:11) formoterol [From Symbicort] Allergy (Verified 11/20/17 14:11) meclizine Allergy (Verified 11/20/17 14:11) naproxen Allergy (Verified 11/20/17 14:11) nitrofurantoin [From Macrobid] Allergy (Verified 11/20/17 14:11) omeprazole [From Prilosec] Allergy (Verified 11/20/17 14:11) phenazopyridine [From Pyridium] Allergy (Verified 11/20/17 14:11) sulfamethoxazole [From Bactrim] Allergy (Verified 11/20/17 14:11) tizanidine Allergy (Verified 11/20/17 14:11) trimethoprim [From Bactrim] Allergy (Verified 11/20/17 14:11) - Review of Systems ROS: No change since H&P - Vital Signs and I&O's Vital Signs: Temperature 98.1 F Pulse Rate [Left Brachial] 70 Respiratory Rate 20 Blood Pressure [Right Arm] 149/63 Blood Pressure [Left Arm] 131/65 Blood Pressure 148/67 O2 Sat by Pulse Oximetry 95 Intake and Output: Intake & Output 07/13/18 07/14/18 07/15/18 07/16/18 11:59 11:59 11:59 11:59 Intake Total 1600 / 1600 600 / 600 2401 / 2401 Balance 1600 / 1600 600 / 600 2401 / 2401 - Physical Exam Oriented: Normal Eyes: Normal Ear: Normal Nose: Normal Throat: Normal Respiratory: Generalized, Diminished Cardiovascular: Normal : Normal Auscultation: Bowel Sounds: Normal Tenderness: Diffuse, Mild Skin: Normal Musculoskeletal: Normal Psychiatric: Normal Mood Description: Calm Affect: Normal Speech Pattern: Clear, Appropriate - Laboratory and Diagnostics Result Diagrams: 07/16/18 04:45 07/16/18 04:45 Labs: 07/13/18 13:40 Urine,Clean Catch Urine Culture - Final Laboratory WBC 6.3 X10^3/uL (3.6-10.0) 07/16/18 04:45 RBC 3.84 X10^6/uL (3.5-5.4) 07/16/18 04:45 Hgb 11.8 g/dL (12.0-16.0) L 07/16/18 04:45 Hct 34.3 % (36.0-47.0) L 07/16/18 04:45 MCV 89.5 fL (80.0-100.0) 07/16/18 04:45 MCH 30.8 pg (27.0-34.0) 07/16/18 04:45 MCHC 34.5 g/dL (33.0-35.0) 07/16/18 04:45 RDW 13.3 % (11.6-16.5) 07/16/18 04:45 Plt Count 290 X10^3/uL (150.0-450.0) 07/16/18 04:45 MPV 8.2 fL (7.4-11.0) 07/16/18 04:45 Neut % (Auto) 66.0 % (42.0-75.0) 07/16/18 04:45 Lymph % (Auto) 21.8 % (21.0-51.0) 07/16/18 04:45 [place] % (Auto) 8.6 % (0.0-13.0) 07/16/18 04:45 Eos % (Auto) 2.9 % (0.9-2.9) 07/16/18 04:45 Baso % (Auto) 0.7 % (0.2-1.0) 07/16/18 04:45 Neut # (Auto) 4.1 x10^3/uL (2.2-4.8) 07/16/18 04:45 Lymph # (Auto) 1.4 X10^3/uL (1.3-2.9) 07/16/18 04:45 [place] # (Auto) 0.5 x10^3/uL (0.3-0.8) 07/16/18 04:45 Eos # (Auto) 0.2 x10^3/uL (0.0-0.2) 07/16/18 04:45 Baso # (Auto) 0.0 X10^3/uL (0.0-0.1) 07/16/18 04:45 Absolute Nucleated RBC 0.1 /100WBC 07/16/18 04:45 ESR 6 MM/HOUR (0-20) 07/14/18 04:40 Sodium 140 mmol/L (136-145) 07/16/18 04:45 Corrected Sodium 141 mmol/L (136-145) 07/16/18 04:45 Potassium 4.3 mmol/L (3.5-5.1) 07/16/18 04:45 Chloride 106 mmol/L (98-107) 07/16/18 04:45 Carbon Dioxide 29.2 mmol/L (21-32) 07/16/18 04:45 BUN 6 mg/dL (7-18) L 07/16/18 04:45 Creatinine 0.69 mg/dL (0.55-1.02) 07/16/18 04:45 Est GFR (MDRD) Af Amer > 60 (>60) 07/16/18 04:45 Est GFR (MDRD) Non-Af > 60 (>60) 07/16/18 04:45 Glucose 125 mg/dL (65-99) H 07/16/18 04:45 Calcium 8.3 mg/dL (8.5-10.1) L 07/16/18 04:45 Corrected Calcium 9.3 mg/dL (8.5-10.1) 07/16/18 04:45 Magnesium 2.1 mg/dL (1.7-2.9) 07/15/18 06:00 Total Bilirubin 0.20 mg/dL (0.2-1.0) 07/16/18 04:45 AST 9 Units/L (15-37) L 07/16/18 04:45 ALT 18 Units/L (12-78) 07/16/18 04:45 Alkaline Phosphatase 76 Units/L (46-116) 07/16/18 04:45 Total Protein 5.5 g/dL (6.4-8.2) L 07/16/18 04:45 Albumin 2.8 g/dL (3.4-5.0) L 07/16/18 04:45 Globulin 2.7 g/dL (2.5-4.5) 07/16/18 04:45 Albumin/Globulin Ratio 1.0 Ratio (1.1-2.1) L 07/16/18 04:45 Specimen Type Clean catch urine 07/13/18 13:40 Urine Color Yellow (YELLOW) 07/13/18 13:40 Urine Appearance Clear (CLEAR) 07/13/18 13:40 Urine pH 7.0 (5.0 - 8.0) 07/13/18 13:40 Ur Specific [place] 1.010 (1.000-1.030) 07/13/18 13:40 Urine Protein Negative (NEGATIVE) 07/13/18 13:40 Urine Glucose (UA) Negative (NEGATIVE) 07/13/18 13:40 Urine Ketones Negative (NEGATIVE) 07/13/18 13:40 Urine Occult Blood Negative (NEGATIVE) 07/13/18 13:40 Urine Nitrite Negative (NEGATIVE) 07/13/18 13:40 Urine Bilirubin Negative (NEGATIVE) 07/13/18 13:40 Urine Urobilinogen Normal (NORMAL) 07/13/18 13:40 Ur Leukocyte Esterase 1+ (NEGATIVE) 07/13/18 13:40 Urine RBC 0-2 /HPF (NONE SEEN) 07/13/18 13:40 Urine WBC 0-2 /HPF (NONE SEEN) 07/13/18 13:40 Ur Squamous Epith Cells Few /HPF (NEGATIVE) 07/13/18 13:40 Urine Bacteria Trace /HPF (NEGATIVE) 07/13/18 13:40 Urine Mucus Rare /HPF (NEGATIVE) 07/13/18 13:40 Ur Culture Indicated? Yes/culture set up 07/13/18 13:40 Tissue Pathology To follow 07/14/18 14:56 - Plan (1) Urinary tract infection Status: Acute Qualifiers: Urinary tract infection type: acute cystitis Hematuria presence: without hematuria Qualified Code(s): N30.00 - Acute cystitis without hematuria Plan: FORTAZ 1GM IV TID, CONTINUE TO MONITOR (2) Bowel habit changes Status: Acute (3) Rectal pain Status: Acute
[2018-07-16] MEDS ORDERED: D5 LR 1000 ML 1,000 ML IV ONE (10:18)
[2018-07-16] MEDS ORDERED: DIPRIVAN VIAL 20 ML ONE (10:43)
[2018-07-16] MEDS ORDERED: DIPRIVAN VIAL 10 ML ONE (10:59)
[2018-07-16] MEDS ORDERED: GLUCOPHAGE ONE (13:19)
[2018-07-16] MEDS ORDERED: [UNRECOGNIZED DRUG - OTHER] PO SCH (15:15)
[2018-07-16] MEDS ORDERED: OLMESARTAN MEDOXOMIL HYDROCHLO PO SCH (15:15)
[2018-07-16] MEDS ORDERED: CHLORASEPTIC SPRAY MT ONE (15:31)
[2018-07-16] MEDS: LOPRESSOR TAB 50 MG PO SCH ×2 (15:40→21:34)
[2018-07-16] MEDS: BENICAR TAB 40 MG PO SCH (15:40)
[2018-07-16] MEDS: HYDROCHLOROTHIAZIDE 25 MG TAB PO SCH (15:41)
[2018-07-16] MEDS ORDERED: CHLORASEPTIC SPRAY MT PRN (15:57)
[2018-07-16] MEDS: RESTORIL CAP 30 MG PO SCH (21:33)
[2018-07-17] MEDS ORDERED: TYLENOL 325 MG TAB PO PRN (04:43)
[2018-07-17 05:21] LABS: BASOPHILS % (AUTO) 0.3 % (0.2-1.0); EOSINOPHILS # (AUTO) 0.2 x10^3/uL (0.0-0.2); HEMATOCRIT 35.9 % (36.0-47.0); HEMOGLOBIN 12.4 g/dL (12.0-16.0); LYMPHOCYTES # (AUTO) 1.4 X10^3/uL (1.3-2.9); LYMPHOCYTES % (AUTO) 20.2 % (21.0-51.0); MEAN CORPUSCULAR HEMOGLOBIN 31.3 pg (27.0-34.0); MEAN CORPUSCULAR HGB CONC 34.5 g/dL (33.0-35.0); MEAN CORPUSCULAR VOLUME 90.6 fL (80.0-100.0); MEAN PLATELET VOLUME 8.1 fL (7.4-11.0); MONOCYTES # (AUTO) 0.5 x10^3/uL (0.3-0.8); MONOCYTES % (AUTO) 8.1 % (0.0-13.0); NEUTROPHILS # (AUTO) 4.6 x10^3/uL (2.2-4.8); NEUTROPHILS % (AUTO) 68.4 % (42.0-75.0); PLATELET COUNT 292 X10^3/uL (150.0-450.0); RED BLOOD COUNT 3.96 X10^6/uL (3.5-5.4); RED CELL DISTRIBUTION WIDTH 13.1 % (11.6-16.5); WHITE BLOOD COUNT 6.8 X10^3/uL (3.6-10.0)
[2018-07-17 05:50] VITALS: BP 153/67
[2018-07-17 05:50] LABS: ALANINE AMINOTRANSFERASE 18 Units/L (12-78); ALBUMIN 2.8 g/dL (3.4-5.0); ALKALINE PHOSPHATASE 68 Units/L (46-116); ASPARTATE AMINO TRANSFERASE 15 Units/L (15-37); BLOOD UREA NITROGEN 5 mg/dL (7-18); CALCIUM 8.3 mg/dL (8.5-10.1); CARBON DIOXIDE 27.8 mmol/L (21-32); CHLORIDE 105 mmol/L (98-107); COR CA(FOR HYPOALB) 9.3 mg/dL (8.5-10.1); CREATININE 0.69 mg/dL (0.55-1.02); SODIUM 139 mmol/L (136-145); TOTAL PROTEIN 5.7 g/dL (6.4-8.2); eGFR NON BLACK RACES > 60 (>60)
[2018-07-17] MEDS: WELCHOL PO SCH (06:52)
[2018-07-17] MEDS ORDERED: GLUCOPHAGE ONE (08:29)
[2018-07-17] MEDS: LOPRESSOR TAB 50 MG PO SCH (09:06)
[2018-07-17] MEDS: PROTONIX INJ 40 MG VIAL IVP SCH (09:06)
[2018-07-17] MEDS: ZYLOPRIM PO SCH (09:06)
[2018-07-17] MEDS: NYSTATIN SUSP MT SCH (09:07)
[2018-07-17] MEDS: SYNTHROID 50 mcg TAB PO SCH (09:07)
[2018-07-17] MEDS: ZANTAC PO SCH (09:07)
[2018-07-17] MEDS: BENICAR TAB 40 MG PO SCH (09:08)
[2018-07-17] MEDS: HYDROCHLOROTHIAZIDE 25 MG TAB PO SCH (09:09)
[2018-07-17] MEDS: GLUCOPHAGE PO SCH (09:09)
[2018-07-17] MEDS: ROCEPHIN VIAL 1 GRAM 1 G in NS 100 ML IV + SPIKE MINIBAG* 100 ML IV SCH (09:10)
[2018-07-17] MEDS: LOVENOX INJ 40 MG SYR SC SCH (09:10)
--- NOTE | 2018-08-30 12:23 | DR.CARTERD ---
- Discharge Summary for: Discharge Summary for Date of:: 07/17/18 - Admission Date Date of Admission: 07/13/18 - Admission Diagnoses Admission Diagnosis: (1) Rectal pain (2) Bowel habit changes (3) Urinary tract infection - Discharge Date Discharge Date: 07/17/18 - Discharge Diagnoses Discharge Diagnosis: (1) Rectal pain (2) Bowel habit changes (3) Urinary tract infection - Hospital Course Hospital Course: DAY ONE, MS. LYNN WAS ADMITTED FOR A URINARY TRACT INFECTION AND A POSSIBLE RECTAL MASS. SHE REPORTED A CHANGE IN BOWEL HABITS. SHE REPORTED DYSPHAGIA, DYSPEPSIA, NAUSEA, AND CONSTIPATION FOR TWO WEEKS, WHERE SHE USUALLY HAD DIARRHEA. ABDOMEN WAS ROUND, SOFT, AND NOTED WITH MILD, DIFFUSE TENDERNESS. DAY TWO, SHE WAS ALERT AND ORIENTED, LYING IN BED ON MORNING ROUNDS. ON EXAMINATION, HEART WAS REGULAR IN RATE AND RHYTHM. BILATERAL LUNGS WERE NOTED WITH DIMINISHED LUNG SOUNDS THROUGHOUT. ABDOMEN WAS ROUND, SOFT, AND NOTED WITH MILD, DIFFUSE TENDERNESS. NORMAL BOWEL SOUNDS NOTED IN ALL QUADRANTS. HER VITALS WERE 97.4-71-18-97%-147/65. LABS WERE OBTAINED. ABNORMAL LABS INCLUDED THE FOLLOWING: SODIUM 133, POTASSIUM 3.2, GLUCOSE 112, CALCIUM 8.3, MAGNESIUM 1.6, AST 11, TOTAL PROTEIN 5.6, ABLUMIN 3.0. SHE WAS STARTED ON FORTAZ IV FOR UTI AND CONTINUED ON NORMAL SALINE AT 75ML/HR. WE CONTINUED WITH TREATMENT. DAY THREE AND FOUR, SHE CONTINUED WITH COMPLAINTS OF DIFFUSE ABDOMINAL PAIN WELL RECTAL PAIN AND PRESSURE AT TIMES. ON EXAMINATION, HEART WAS REGULAR IN RATE AND RHYTHM. BILATERAL LUNGS WERE NOTED WITH DIMINISHED LUNG SOUNDS THROUGHOUT. ABDOMEN WAS ROUND, SOFT, AND NOTED WITH MILD, DIFFUSE TENDERNESS. NORMAL BOWEL SOUNDS NOTED IN ALL QUADRANTS. HER VITALS WERE STABLE. LABS WERE OBTAINED. ABNORMAL LABS INCLUDED THE FOLLOWING: HCT 35.7, BUN 5, GLUCOSE 111, CALCIUM 7.7, AST 9, TOTAL PROTEIN 5.3, ALBUMIN 2.8. SHE HAD A COLONOSCOPY THE DAY BEFORE WHICH REVEALED: SIGMOID DIVERTICULOSIS, COLON POLYP, AND INTERNAL HEMORRHOIDS. SHE CONTINUED ON FORTAZ IV FOR UTI AND CONTINUED ON NORMAL SALINE AT 75ML/HR. PERFORMED AN EGD ON DAY FOUR THAT REPORTED, NUMEROUS GASTRIC POLYPS, SOME WITH ULCERATIONS ON TOP; A PROMINENT GASTRIC POLYP AT EG JUNCTION, CLOSE TO CARDIA; ANTRAL GASTRITIS, ESOPHAGEAL STRICTURE. WE CONTINUED TREATMENT AND MONITORED. DAY FIVE, PATIENT REPORTED SHE WAS FEELING BETTER. PATIENT DENIED ABDOMINAL PAIN. VITAL SIGNS STABLE. LABS WNL. URINE CULTURE NEGATIVE. WE PLANNED FOR DISCHARGE WITH PROTONIX AND ZANTAC. INSTRUCTIONS FOR MEDICATIONS AND FOLLOW UP WERE DISCUSSED WITH PATIENT AND FAMILY, BOTH VOICED UNDERSTANDING. PATIENT DISCHARGED HOME IN STABLE CONDITION WITH FAMILY. - Discharge Medications Discharge Medications: Home Medication List allopurinol 1 tab PO DAILY 07/13/18 [History] metoprolol tartrate 1 tab PO BID 07/13/18 [History] nitrofurantoin monohyd/m-cryst 1 cap PO BID 07/13/18 [History] temazepam 30 mg PO HS #30 cap 07/17/18 [Rx] Prescriptions: temazepam [place] Home medications Olmesartan Medoxomil-Hydrochlo [Benicar HCT 40 mg/25 mg] 1 tab PO DAILY pantoprazole [Protonix] 40 mg PO BID 10/05/16 ranitidine HCl 150 mg PO BID #60 tab 10/05/16 levothyroxine 1 tab PO DAILY 11/20/17 colesevelam [WelChol] 1 tab PO TID PRN 05/15/18 metformin 1 tab PO DAILY 05/15/18 - Discharge Disposition Discharge Disposition: PATIENT IS TO FOLLOW UP IN OUR OFFICE IN ONE WEEK.
== END 2018-07-17 12:50 | disposition home or self-care (01) | DRG 689 ==
LOC: MED/SURG 11:15
PROVIDERS: ADMIT Internal Medicine; ATTEND Internal Medicine
DX: Z86.010 Personal history of colon polyps; K22.2 Esophageal obstruction; I10 Essential (primary) hypertension; K63.5 Polyp of colon; K62.9 Disease of anus and rectum, unspecified; E11.65 Type 2 diabetes mellitus with hyperglycemia; R10.13 Epigastric pain; K64.8 Other hemorrhoids; R19.4 Change in bowel habit; K62.89 Other specified diseases of anus and rectum; K31.7 Polyp of stomach and duodenum; E13.11 Other specified diabetes mellitus with ketoacidosis with coma; K57.30 Diverticulosis of large intestine without perforation or abscess without bleeding; K29.60 Other gastritis without bleeding; K21.9 Gastro-esophageal reflux disease without esophagitis; N30.00 Acute cystitis without hematuria
CPT/HCPCS: 36415; 80053; 81001; 83735; 85025; 85652; 87086; 88305; 88342; 99100; A4222; C9113; A4217; J0696; J1650; J2704; J3475; J3480; J3490; J7030; J7040; J7050; J7121

== ENCOUNTER 2019-09-01 14:57 | Observation (INO) ==
[2019-09-01] MEDS ORDERED: NS 1000 ML 1,000 ML IV SCH (17:24)
[2019-09-01] MEDS ORDERED: NS 1000 ML 1,000 ML ONE (17:43)
[2019-09-01 17:51] LABS: BASOPHILS % (AUTO) 0.6 % (0.2-1.0); EOSINOPHILS # (AUTO) 0.1 x10^3/uL (0.0-0.2); EOSINOPHILS % (AUTO) 1.1 % (0.9-2.9); HEMATOCRIT 39.3 % (36.0-47.0); LYMPHOCYTES % (AUTO) 28.8 % (21.0-51.0); MEAN CORPUSCULAR HEMOGLOBIN 31.7 pg (27.0-34.0); MEAN CORPUSCULAR HGB CONC 35.7 g/dL (33.0-35.0); MEAN CORPUSCULAR VOLUME 88.9 fL (80.0-100.0); MONOCYTES # (AUTO) 0.6 x10^3/uL (0.3-0.8); MONOCYTES % (AUTO) 8.9 % (0.0-13.0); NEUTROPHILS # (AUTO) 4.1 x10^3/uL (2.2-4.8); NEUTROPHILS % (AUTO) 60.6 % (42.0-75.0); PLATELET COUNT 308 X10^3/uL (150.0-450.0); RED BLOOD COUNT 4.42 X10^6/uL (3.5-5.4); RED CELL DISTRIBUTION WIDTH 12.8 % (11.6-16.5); WHITE BLOOD COUNT 6.8 X10^3/uL (3.6-10.0)
[2019-09-01 17:54] VITALS: BMI 28.1
[2019-09-01] MEDS ORDERED: AFLURIA II4 or FLUARIX II4 IM ONE (17:55)
--- NOTE | 2019-09-01 18:01 | DR.UPDATE ---
H&P Update History and Physical Update: History and Physical reviewed and patient examined. Changes noted: Yes with the following: WAS SEEN IN THE OFFICE TODAY WITH COMPLAINTS OF DIZZINESS, CHEST PAIN, SHORTNESS OF BREATH, AND NEARLY PASSING OUT. SHE REPORTS TAKING AMOXICILLIN A FEW DAYS AGO AND HAS BEEN SICK SINCE. WE ADMITTED PATIENT FOR FURTHER EVALUATION AND TREATMENT OF CHEST PAIN, SHORTNESS OF BREATH, DIZZINESS, AND NEAR SYNCOPE. ON ADMISSION, WE PLAN TO OBTAIN A CBC, CMP, SERIAL CARDIAC ENZYMES AND EKG, AND A URINALYSIS. WE WILL ALSO OBTAIN A BRAIN CT WITHOUT CONTRAST. WE WILL START NORMAL SALINE AT 75ML/HR AND WILL RESUME HOME MEDICATIONS. OTHERWISE, WE WILL FOLLOW UP WITH AM LABS AND CONTINUE TO MONITOR.
[2019-09-01 18:23] LABS: ALANINE AMINOTRANSFERASE 15 Units/L (12-78); ALBUMIN 3.4 g/dL (3.4-5.0); ALKALINE PHOSPHATASE 83 Units/L (46-116); ASPARTATE AMINO TRANSFERASE 13 Units/L (15-37); BLOOD UREA NITROGEN 9 mg/dL (7-18); CALCIUM 8.7 mg/dL (8.5-10.1); CHLORIDE 100 mmol/L (98-107); CKMB % 2.2 % (<4); CREATINE KINASE 46 Units/L (26-192); CREATINE KINASE MB < 1.0 ng/mL (0-4.0); CREATININE 0.87 mg/dL (0.55-1.02); SODIUM 138 mmol/L (136-145); TOTAL PROTEIN 6.4 g/dL (6.4-8.2); eGFR NON BLACK RACES > 60 (>60)
[2019-09-01 18:27] LABS: TROPONIN I < 0.04 ng/mL (0-1.5)
[2019-09-01] MEDS ORDERED: KLOR-CON PO PRN (18:32)
[2019-09-01] MEDS ORDERED: POTASSIUM CHL 40 MEQ/NS 0.45% 500 ML IV PRN (18:32)
[2019-09-01] MEDS ORDERED: POTASSIUM CHL 60 MEQ/NS 0.45% 500 ML IV PRN (18:32)
[2019-09-01] MEDS ORDERED: MICRO K EXTEN CAP 10 MEQ PO PRN (18:32)
[2019-09-01] MEDS ORDERED: POTASSIUM CHLORIDE LIQ 20 MEQ UDC PO PRN (18:32)
[2019-09-01] MEDS ORDERED: K-RIDER 10 MEQ/NS 100 ML 10 MEQ/100 ML BAG IV PRN (18:32)
[2019-09-01] MEDS ORDERED: K-DUR TAB 20 MEQ PO ONE (18:38)
[2019-09-01] MEDS: K-DUR TAB 20 MEQ PO PRN (18:40)
[2019-09-01] MEDS ORDERED: TYLENOL 325 MG TAB PO PRN (20:10)
[2019-09-01] MEDS: MAGNESIUM SULFATE 1 GRAM/100 mL PREMIX 1 GM/100 ML BAG IV PRN ×2 (20:28→21:58)
[2019-09-01 21:01] LABS: BILIRUBIN,URINE NEGATIVE (NEGATIVE); BLOOD/HEMOGLOBIN,URINE NEGATIVE (NEGATIVE); GLUCOSE, URINE NEGATIVE (NEGATIVE); KETONES,URINE NEGATIVE (NEGATIVE); LEUKOCYTE ESTERASE ,URINE 1+ (NEGATIVE); NITRITES,URINE NEGATIVE (NEGATIVE); PROTEIN,URINE NEGATIVE (NEGATIVE); UROBILINOGEN,URINE NORMAL (NORMAL)
[2019-09-01 21:02] LABS: APPEARANCE,URINE CLEAR (CLEAR); COLOR,URINE YELLOW (YELLOW)
[2019-09-01 21:10] LABS: BACTERIA,URINE TRACE /HPF (NEGATIVE); RBC,URINE 0-2 /HPF (0-3); SQUAMOUS EPITHELIAL CELL,UR RARE /HPF (NEGATIVE)
--- NOTE | 2019-09-01 21:21 | RAD ---
History: Shortness of breath Exam: Chest x-ray Comparison: 11/28/2017 Technique: Portable chest Findings: The heart is normal. The pulmonary vessels are normal. There are mild chronic interstitial changes throughout. No consolidation or effusion is seen. The bones are intact. IMPRESSION: Stable chronic changes with no acute abnormality seen. Reported By:
[2019-09-01 21:33] LABS: CKMB % 2.3 % (<4); CREATINE KINASE 43 Units/L (26-192); CREATINE KINASE MB < 1.0 ng/mL (0-4.0)
[2019-09-01 21:35] LABS: TROPONIN I < 0.04 ng/mL (0-1.5)
[2019-09-01] MEDS ORDERED: NS + KCL 20 MEQ/L 1,000 ML IV ONE (21:42)
[2019-09-01] MEDS: NS + KCL 20 MEQ/L 1,000 ML IV SCH (21:57)
[2019-09-01] MEDS: RESTORIL CAP 15 MG PO PRN (22:11)
--- NOTE | 2019-09-02 02:42 | CT ---
CT head without contrast Indication: Weakness, dizziness, near syncope Comparison: None Technique: CT images of the head were obtained without contrast. Automatic exposure control was utilized. Findings: There is mild global atrophy with concomitant ventricular and sulcal enlargement. There is no evidence for acute bleed, mass effect, or abnormal extra-axial collection. No acute osseous abnormality. The visualized paranasal sinuses and mastoid air cells are clear. Impression: No acute intracranial abnormality. Reported By:
[2019-09-02 02:46] LABS: CKMB % 2.4 % (<4); CREATINE KINASE 42 Units/L (26-192); CREATINE KINASE MB < 1.0 ng/mL (0-4.0)
[2019-09-02 02:51] LABS: TROPONIN I < 0.02 ng/mL (0-1.5)
[2019-09-02 06:26] LABS: BASOPHILS % (AUTO) 0.6 % (0.2-1.0); EOSINOPHILS # (AUTO) 0.2 x10^3/uL (0.0-0.2); EOSINOPHILS % (AUTO) 2.9 % (0.9-2.9); HEMATOCRIT 37.8 % (36.0-47.0); HEMOGLOBIN 13.4 g/dL (12.0-16.0); LYMPHOCYTES # (AUTO) 2.2 X10^3/uL (1.3-2.9); LYMPHOCYTES % (AUTO) 40.3 % (21.0-51.0); MEAN CORPUSCULAR HEMOGLOBIN 31.5 pg (27.0-34.0); MEAN CORPUSCULAR HGB CONC 35.3 g/dL (33.0-35.0); MEAN CORPUSCULAR VOLUME 89.2 fL (80.0-100.0); MEAN PLATELET VOLUME 8.4 fL (7.4-11.0); MONOCYTES # (AUTO) 0.5 x10^3/uL (0.3-0.8); MONOCYTES % (AUTO) 10.1 % (0.0-13.0); NEUTROPHILS # (AUTO) 2.5 x10^3/uL (2.2-4.8); NEUTROPHILS % (AUTO) 46.1 % (42.0-75.0); PLATELET COUNT 280 X10^3/uL (150.0-450.0); RED BLOOD COUNT 4.24 X10^6/uL (3.5-5.4); RED CELL DISTRIBUTION WIDTH 12.8 % (11.6-16.5); WHITE BLOOD COUNT 5.5 X10^3/uL (3.6-10.0)
[2019-09-02 06:38] LABS: ALANINE AMINOTRANSFERASE 15 Units/L (12-78); ALKALINE PHOSPHATASE 73 Units/L (46-116); ASPARTATE AMINO TRANSFERASE 18 Units/L (15-37); BLOOD UREA NITROGEN 7 mg/dL (7-18); CALCIUM 8.3 mg/dL (8.5-10.1); CARBON DIOXIDE 27.7 mmol/L (21-32); CHLORIDE 104 mmol/L (98-107); COR CA(FOR HYPOALB) 9.1 mg/dL (8.5-10.1); COR NA(FOR HYPERGLY) 138 mmol/L (136-145); CREATININE 0.66 mg/dL (0.55-1.02); SODIUM 138 mmol/L (136-145); TOTAL PROTEIN 5.8 g/dL (6.4-8.2); eGFR NON BLACK RACES > 60 (>60)
[2019-09-02] MEDS ORDERED: OFIRMEV IV 1000 MG VIAL 1,000 MG/100 ML VIAL IV PRN (08:44)
[2019-09-02] MEDS ORDERED: FIORICET TAB PO PRN (09:57)
[2019-09-02] MEDS: SYNTHROID 50 mcg TAB PO SCH (11:04)
[2019-09-02] MEDS: AMOXIL CAP 500 MG PO SCH ×2 (11:09→20:33)
[2019-09-02] MEDS: VITAMIN C PO SCH (11:10)
[2019-09-02] MEDS: LOPRESSOR TAB 50 MG PO SCH ×2 (11:10→20:30)
[2019-09-02] MEDS: MUCINEX EXPECTORANT PO SCH ×2 (11:12→23:15)
[2019-09-02] MEDS: WELCHOL PO SCH ×2 (11:13→20:43)
[2019-09-02] MEDS: SACCHAROMYCES BOULARDII PO SCH (11:14)
[2019-09-02] MEDS: BENICAR TAB 40 MG PO SCH (11:14)
[2019-09-02] MEDS: NS + KCL 20 MEQ/L 1,000 ML IV SCH (11:15)
[2019-09-02] MEDS: PROTONIX INJ 40 MG VIAL IVP SCH (11:16)
[2019-09-02] MEDS: TORADOL 30 MG VIAL IVP PRN ×2 (11:23→20:34)
--- NOTE | 2019-09-02 12:30 | CT ---
History: Dental abscess CT facial bones without contrast. Sagittal and coronal reformations were provided. A Panorex view was displayed. Findings: There are some absent teeth in the maxilla bilaterally and similar molars in the left mandible are absent. There is no lytic lesion or cavity to suggest abscess or caries on this exam. The mandible is intact without fracture. The paranasal sinuses are clear. The ostiomeatal complexes are patent. There is a right submandibular lymph node measuring 9 mm diameter. The submandibular glands and parotid glands are unremarkable. There are prominent left jugular lymph nodes. Impression: No evidence for dental abscess or caries. Mildly enlarged right submandibular lymph node and prominent less than 1 cm in diameter left jugular lymph nodes. Reported By:
[2019-09-02] MEDS ORDERED: PHARMACY CONSULT - DOSE _____ XX SCH (13:00)
[2019-09-02] MEDS ORDERED: NS 1000 ML 1,000 ML ONE (15:42)
[2019-09-02] MEDS: NS 1000 ML 1,000 ML IV SCH (16:03)
--- NOTE | 2019-09-02 20:28 | PCM.PROG ---
Progress Note - Progress Note for Day of Date of Exam: 09/02/19 - Subjective Subjective: WAS ADMITTED FOR COMPLAINTS OF CHEST PAIN, DIZZINESS, AND SHORTNESS OF BREATH. TODAY, SHE IS ALERT AND ORIENTED, LYING IN BED ON MORNING ROUNDS. SHE CONTINUES WITH WEAKNESS TODAY AND ALSO REPORTS PAIN TO THE LEFT SIDE MOUTH DUE TO A DENTAL ABSCESS. SHE ALSO REPORTS HEADACHE. SHE DENIES CHEST PAIN OR DIZZINESS THIS MORNING. ON EXAMINATION, HEART IS REGULAR IN RATE AND RHYTHM. BILATERAL LUNGS ARE NOTED WITH DIMINISHED LUNG SOUNDS THROUGHOUT. ABDOMEN IS ROUND, SOFT, AND NON-TENDER WITH NORMAL BOWEL SOUNDS THROUGHOUT. HER VITALS THIS MORNING ARE: 97.8-66-18-96%-138/62. ABNORMAL LAB VALUES INCLUDE THE FOLLOWING: GLUCOSE 118, CALCIUM 8.3, AMMONIA 10, TOTAL PROTEIN 5.8, ALBUMIN 3.0. CARDIAC ENZYMES AND EKGS WITHIN NORMAL LIMITS. TODAY, WE PLAN TO OBTAIN A FACIAL CT. WE WILL START FIORCET 2 TABS PO TID, TORADOL 30MG IV Q6H PRN, AMOXICILLIN 500MG PO BID. OTHERWISE, WE WILL CONTINUE WITH CURRENT PLAN OF CARE. OTHERWISE, WE WILL FOLLOW UP WITH AM LABS AND CONTINUE TO MONITOR. - Past Medical Family Social History Past Med/Fam/Surg Hx: No changes since H&P Allergies: Allergies azithromycin [From Zithromax] Allergy (Verified 11/20/17 14:11) budesonide [From Symbicort] Allergy (Verified 11/20/17 14:11) cetirizine [From Zyrtec] Allergy (Verified 11/20/17 14:11) ciprofloxacin [From Cipro] Allergy (Verified 11/20/17 14:11) clavulanic acid [From Augmentin] Allergy (Verified 11/20/17 14:11) clonazepam [From Klonopin] Allergy (Verified 11/20/17 14:11) formoterol [From Symbicort] Allergy (Verified 11/20/17 14:11) meclizine Allergy (Verified 11/20/17 14:11) naproxen Allergy (Verified 11/20/17 14:11) nitrofurantoin [From Macrobid] Allergy (Verified 11/20/17 14:11) omeprazole [From Prilosec] Allergy (Verified 11/20/17 14:11) phenazopyridine [From Pyridium] Allergy (Verified 11/20/17 14:11) sulfamethoxazole [From Bactrim] Allergy (Verified 11/20/17 14:11) tizanidine Allergy (Verified 11/20/17 14:11) trimethoprim [From Bactrim] Allergy (Verified 11/20/17 14:11) - Review of Systems ROS: No change since H&P - Vital Signs and I&O's Vital Signs: Temperature 97.8 F Pulse Rate [Right Brachial] 64 Respiratory Rate 18 Blood Pressure [Right Arm] 141/64 Blood Pressure [Left Arm] 158/70 Intake and Output: Intake & Output 08/31/19 09/01/19 09/02/19 09/03/19 11:59 11:59 11:59 11:59 Intake Total 1700 / 1700 1740 / 1740 Balance 1700 / 1700 1740 / 1740 - Physical Exam Oriented: Normal Eyes: Normal Ear: Normal Nose: Normal Throat: Normal Respiratory: Generalized, Diminished Cardiovascular: Normal : Hematuria Auscultation: Bowel Sounds: Normal Palpation: Normal Tenderness: Normal Skin: Normal Musculoskeletal: Normal Psychiatric: Normal Mood Description: Calm Affect: Normal Speech Pattern: Clear, Appropriate - Laboratory and Diagnostics Result Diagrams: 09/02/19 05:36 09/02/19 05:36 Labs: Laboratory WBC 5.5 X10^3/uL (3.6-10.0) 09/02/19 05:36 RBC 4.24 X10^6/uL (3.5-5.4) 09/02/19 05:36 Hgb 13.4 g/dL (12.0-16.0) 09/02/19 05:36 Hct 37.8 % (36.0-47.0) 09/02/19 05:36 MCV 89.2 fL (80.0-100.0) 09/02/19 05:36 MCH 31.5 pg (27.0-34.0) 09/02/19 05:36 MCHC 35.3 g/dL (33.0-35.0) H 09/02/19 05:36 RDW 12.8 % (11.6-16.5) 09/02/19 05:36 Plt Count 280 X10^3/uL (150.0-450.0) 09/02/19 05:36 MPV 8.4 fL (7.4-11.0) 09/02/19 05:36 Neut % (Auto) 46.1 % (42.0-75.0) 09/02/19 05:36 Lymph % (Auto) 40.3 % (21.0-51.0) 09/02/19 05:36 [place] % (Auto) 10.1 % (0.0-13.0) 09/02/19 05:36 Eos % (Auto) 2.9 % (0.9-2.9) 09/02/19 05:36 Baso % (Auto) 0.6 % (0.2-1.0) 09/02/19 05:36 Neut # (Auto) 2.5 x10^3/uL (2.2-4.8) 09/02/19 05:36 Lymph # (Auto) 2.2 X10^3/uL (1.3-2.9) 09/02/19 05:36 [place] # (Auto) 0.5 x10^3/uL (0.3-0.8) 09/02/19 05:36 Eos # (Auto) 0.2 x10^3/uL (0.0-0.2) 09/02/19 05:36 Baso # (Auto) 0.0 X10^3/uL (0.0-0.1) 09/02/19 05:36 Absolute Nucleated RBC 0.1 /100WBC 09/02/19 05:36 Sodium 138 mmol/L (136-145) 09/02/19 05:36 Corrected Sodium 138 mmol/L (136-145) 09/02/19 05:36 Potassium 4.5 mmol/L (3.5-5.1) 09/02/19 05:36 Chloride 104 mmol/L (98-107) 09/02/19 05:36 Carbon Dioxide 27.7 mmol/L (21-32) 09/02/19 05:36 BUN 7 mg/dL (7-18) 09/02/19 05:36 Creatinine 0.66 mg/dL (0.55-1.02) 09/02/19 05:36 Est GFR (MDRD) Af Amer > 60 (>60) 09/02/19 05:36 Est GFR (MDRD) Non-Af > 60 (>60) 09/02/19 05:36 Glucose 118 mg/dL (65-99) H 09/02/19 05:36 Calcium 8.3 mg/dL (8.5-10.1) L 09/02/19 05:36 Corrected Calcium 9.1 mg/dL (8.5-10.1) 09/02/19 05:36 Magnesium 2.3 mg/dL (1.7-2.9) 09/02/19 01:42 Total Bilirubin 0.30 mg/dL (0.2-1.0) 09/02/19 05:36 AST 18 Units/L (15-37) 09/02/19 05:36 ALT 15 Units/L (12-78) 09/02/19 05:36 Alkaline Phosphatase 73 Units/L (46-116) 09/02/19 05:36 Ammonia 10 umol/L (11-32) L 09/02/19 15:38 Creatine Kinase 42 Units/L (26-192) 09/02/19 01:42 CK-MB (CK-2) < 1.0 ng/mL (0-4.0) 09/02/19 01:42 CK/CKMB % Calc 2.4 % (<4) 09/02/19 01:42 Troponin I < 0.02 ng/mL (0-1.5) 09/02/19 01:42 Total Protein 5.8 g/dL (6.4-8.2) L 09/02/19 05:36 Albumin 3.0 g/dL (3.4-5.0) L 09/02/19 05:36 Globulin 2.8 g/dL (2.5-4.5) 09/02/19 05:36 Albumin/Globulin Ratio 1.1 Ratio (1.1-2.1) 09/02/19 05:36 Specimen Type Clean catch urine 09/01/19 20:45 Urine Color Yellow (YELLOW) 09/01/19 20:45 Urine Appearance Clear (CLEAR) 09/01/19 20:45 Urine pH 6.0 (5.0 - 8.0) 09/01/19 20:45 Ur Specific [place] 1.015 (1.000-1.030) 09/01/19 20:45 Urine Protein Negative (NEGATIVE) 09/01/19 20:45 Urine Glucose (UA) Negative (NEGATIVE) 09/01/19 20:45 Urine Ketones Negative (NEGATIVE) 09/01/19 20:45 Urine Occult Blood Negative (NEGATIVE) 09/01/19 20:45 Urine Nitrite Negative (NEGATIVE) 09/01/19 20:45 Urine Bilirubin Negative (NEGATIVE) 09/01/19 20:45 Urine Urobilinogen Normal (NORMAL) 09/01/19 20:45 Ur Leukocyte Esterase 1+ (NEGATIVE) 09/01/19 20:45 Urine RBC 0-2 /HPF (0-3) 09/01/19 20:45 Urine WBC 0-2 /HPF (0-5) 09/01/19 20:45 Ur Squamous Epith Cells Rare /HPF (NEGATIVE) 09/01/19 20:45 Urine Bacteria Trace /HPF (NEGATIVE) 09/01/19 20:45 Ur Culture Indicated? No/not indicated 09/01/19 20:45 - Plan (1) Chest pain, rule out acute myocardial infarction Status: Acute Plan: TELEMETRY, CONTINUE TO MONITOR (2) Generalized weakness Status: Acute (3) Dental abscess Status: Acute Plan: AMOXICILLIN, FIORCET, TORADOL, OBTAIN FACIAL CT (4) Breath shortness Status: Acute Plan: SUPPLEMENTAL OXYGEN, CONTINUE TO MONITOR
[2019-09-02] MEDS: RESTORIL CAP 15 MG PO PRN (20:31)
[2019-09-03] MEDS: NS + KCL 20 MEQ/L 1,000 ML IV SCH (02:06)
[2019-09-03 04:46] LABS: BASOPHILS % (AUTO) 0.5 % (0.2-1.0); EOSINOPHILS # (AUTO) 0.2 x10^3/uL (0.0-0.2); EOSINOPHILS % (AUTO) 3.5 % (0.9-2.9); HEMATOCRIT 36.6 % (36.0-47.0); HEMOGLOBIN 12.6 g/dL (12.0-16.0); LYMPHOCYTES % (AUTO) 34.3 % (21.0-51.0); MEAN CORPUSCULAR HEMOGLOBIN 31.1 pg (27.0-34.0); MEAN CORPUSCULAR HGB CONC 34.4 g/dL (33.0-35.0); MEAN CORPUSCULAR VOLUME 90.4 fL (80.0-100.0); MEAN PLATELET VOLUME 8.7 fL (7.4-11.0); MONOCYTES # (AUTO) 0.5 x10^3/uL (0.3-0.8); MONOCYTES % (AUTO) 8.9 % (0.0-13.0); NEUTROPHILS # (AUTO) 3.1 x10^3/uL (2.2-4.8); NEUTROPHILS % (AUTO) 52.8 % (42.0-75.0); PLATELET COUNT 260 X10^3/uL (150.0-450.0); RED BLOOD COUNT 4.05 X10^6/uL (3.5-5.4); RED CELL DISTRIBUTION WIDTH 12.5 % (11.6-16.5); WHITE BLOOD COUNT 5.9 X10^3/uL (3.6-10.0)
[2019-09-03 04:53] LABS: ALANINE AMINOTRANSFERASE 15 Units/L (12-78); ALBUMIN 2.7 g/dL (3.4-5.0); ALKALINE PHOSPHATASE 71 Units/L (46-116); ASPARTATE AMINO TRANSFERASE 10 Units/L (15-37); BLOOD UREA NITROGEN 13 mg/dL (7-18); CALCIUM 7.8 mg/dL (8.5-10.1); CARBON DIOXIDE 27.3 mmol/L (21-32); CHLORIDE 103 mmol/L (98-107); COR CA(FOR HYPOALB) 8.8 mg/dL (8.5-10.1); COR NA(FOR HYPERGLY) 137 mmol/L (136-145); CREATININE 0.84 mg/dL (0.55-1.02); SODIUM 137 mmol/L (136-145); TOTAL PROTEIN 5.1 g/dL (6.4-8.2); eGFR NON BLACK RACES > 60 (>60)
[2019-09-03] MEDS: NS 1000 ML 1,000 ML IV SCH (05:03)
[2019-09-03] MEDS: K-DUR TAB 20 MEQ PO PRN (06:07)
[2019-09-03] MEDS: LOPRESSOR TAB 50 MG PO SCH (09:23)
[2019-09-03] MEDS: AMOXIL CAP 500 MG PO SCH (09:23)
[2019-09-03] MEDS: BENICAR TAB 40 MG PO SCH (09:24)
[2019-09-03] MEDS: PROTONIX INJ 40 MG VIAL IVP SCH (09:24)
[2019-09-03] MEDS: VITAMIN C PO SCH (09:24)
[2019-09-03] MEDS: SYNTHROID 50 mcg TAB PO SCH (09:24)
[2019-09-03] MEDS: WELCHOL PO SCH (09:24)
[2019-09-03] MEDS: SACCHAROMYCES BOULARDII PO SCH (09:25)
[2019-09-03 11:14] VITALS: BP 188/67
== END 2019-09-03 10:45 | disposition home or self-care (01) ==
LOC: MED/SURG
PROVIDERS: ADMIT Internal Medicine; ATTEND Internal Medicine
DX: R53.1 Weakness; R07.89 Other chest pain; R42 Dizziness and giddiness; Z23 Encounter for immunization; I10 Essential (primary) hypertension; R06.02 Shortness of breath; R55 Syncope and collapse; R51 Headache; K04.7 Periapical abscess without sinus
CPT/HCPCS: 36415; 70450; 70486; 71010; 71045; 80053; 81001; 82140; 82550; 82553; 83735; 84132; 84484; 85025; 93005; 94760; 96367; 96374; A4216; A4222; C9113; G0378; J1885; J3475; J3490; J7030

== ENCOUNTER 2022-06-27 10:13 | Observation (INO) ==
[2022-06-27 12:14] LABS: BASOPHILS % (AUTO) 0.6 % (0.2-1.0); EOSINOPHILS # (AUTO) 0.1 x10^3/uL (0.0-0.2); EOSINOPHILS % (AUTO) 1.5 % (0.9-2.9); HEMATOCRIT 41.5 % (36.0-47.0); HEMOGLOBIN 14.6 g/dL (12.0-16.0); LYMPHOCYTES # (AUTO) 1.6 X10^3/uL (1.3-2.9); LYMPHOCYTES % (AUTO) 23.2 % (21.0-51.0); MEAN CORPUSCULAR HEMOGLOBIN 30.9 pg (27.0-34.0); MEAN CORPUSCULAR HGB CONC 35.2 g/dL (33.0-35.0); MEAN CORPUSCULAR VOLUME 87.8 fL (80.0-100.0); MEAN PLATELET VOLUME 8.8 fL (7.4-11.0); MONOCYTES # (AUTO) 0.5 x10^3/uL (0.3-0.8); MONOCYTES % (AUTO) 7.6 % (0.0-13.0); NEUTROPHILS # (AUTO) 4.6 x10^3/uL (2.2-4.8); NEUTROPHILS % (AUTO) 67.1 % (42.0-75.0); RED BLOOD COUNT 4.73 X10^6/uL (3.5-5.4); RED CELL DISTRIBUTION WIDTH 13.5 % (11.6-16.5); WHITE BLOOD COUNT 6.9 X10^3/uL (3.6-10.0)
[2022-06-27 12:58] LABS: ALANINE AMINOTRANSFERASE 23 Units/L (12-78); ALBUMIN 3.6 g/dL (3.4-5.0); ALKALINE PHOSPHATASE 91 Units/L (46-116); ASPARTATE AMINO TRANSFERASE 18 Units/L (15-37); BLOOD UREA NITROGEN 11 mg/dL (7-18); CALCIUM 8.5 mg/dL (8.5-10.1); CARBON DIOXIDE 27.7 mmol/L (21-32); CHLORIDE 106 mmol/L (98-107); COR NA(FOR HYPERGLY) 141 mmol/L (136-145); CREATINE KINASE 57 Units/L (26-192); CREATININE 0.89 mg/dL (0.55-1.02); SODIUM 140 mmol/L (136-145); TOTAL PROTEIN 6.3 g/dL (6.4-8.2); eGFR NON BLACK RACES > 60 (>60)
[2022-06-27 13:13] VITALS: BMI 29.6
[2022-06-27] MEDS: NS 1,000 ML IV 1,000 ML IV SCH (13:46)
[2022-06-27] MEDS: ASPIRIN EC 81 MG PO SCH ×2 (13:46→13:54)
[2022-06-27] MEDS: TYLENOL 325 MG TAB PO PRN (14:30)
--- NOTE | 2022-06-27 15:16 | RAD ---
HISTORYChest pain SOBSTUDYPortable AP [id number] size remains normal with lungs clear of active-appearing disease. There is no definite pneumonia, CHF or significant pleural effusion.IMPRESSIONNo acute chest findings.Electronically signed by: MANUEL HARDIN (Jun 27, 2022 15:14:56)
[2022-06-27] MEDS: CATAPRES TAB 0.1 MG PO SCH (16:31)
[2022-06-27] MEDS ORDERED: ZOFRAN TAB 4 MG PO PRN (18:55)
[2022-06-27] MEDS: MUCINEX EXPECTORANT PO SCH (20:20)
[2022-06-27] MEDS: LIPITOR TAB 20 MG PO SCH (20:20)
[2022-06-27] MEDS: LOPRESSOR TAB 50 MG PO SCH (20:21)
[2022-06-27] MEDS: PREVACID PO SCH (20:22)
[2022-06-27] MEDS ORDERED: NORVASC TAB 5 MG PO SCH (21:00)
[2022-06-27] MEDS ORDERED: NovoLIN R (or HumuLIN R) SUBCUT PRN (21:00)
[2022-06-27] MEDS: COLCRYS TAB 0.6 MG PO PRN (21:45)
[2022-06-28] MEDS: TYLENOL 325 MG TAB PO PRN ×4 (00:12→22:25)
[2022-06-28] MEDS ORDERED: CATAPRES TAB 0.1 MG PO ONE (00:24)
[2022-06-28] MEDS ORDERED: APRESOLINE INJ 20 MG VIAL IVP ONE ×2 (01:41→16:12)
[2022-06-28] MEDS: NS 1,000 ML IV 1,000 ML IV SCH ×2 (02:21→16:33)
[2022-06-28 05:55] LABS: BASOPHILS % (AUTO) 0.4 % (0.2-1.0); EOSINOPHILS # (AUTO) 0.1 x10^3/uL (0.0-0.2); EOSINOPHILS % (AUTO) 2.3 % (0.9-2.9); HEMATOCRIT 42.1 % (36.0-47.0); HEMOGLOBIN 14.8 g/dL (12.0-16.0); LYMPHOCYTES # (AUTO) 1.7 X10^3/uL (1.3-2.9); LYMPHOCYTES % (AUTO) 35.1 % (21.0-51.0); MEAN CORPUSCULAR HEMOGLOBIN 30.5 pg (27.0-34.0); MEAN CORPUSCULAR HGB CONC 35.2 g/dL (33.0-35.0); MEAN CORPUSCULAR VOLUME 86.7 fL (80.0-100.0); MONOCYTES # (AUTO) 0.4 x10^3/uL (0.3-0.8); MONOCYTES % (AUTO) 9.2 % (0.0-13.0); NEUTROPHILS # (AUTO) 2.6 x10^3/uL (2.2-4.8); RED BLOOD COUNT 4.86 X10^6/uL (3.5-5.4); RED CELL DISTRIBUTION WIDTH 13.1 % (11.6-16.5); WHITE BLOOD COUNT 4.8 X10^3/uL (3.6-10.0)
--- NOTE | 2022-06-28 06:08 | RAD ---
HISTORYCHEST PAIN, SOB DM, HTN, COPD, HYSTERECTOMY, APPENDECTOMY, GB, SPINE, EYES, ORTHOSTUDYCHEST, 1 [id number] trachea is midline. The cardiac silhouette is unremarkable. The lungs are clear without focal infiltrate or effusion. The bony thorax is unremarkable.IMPRESSIONNo acute cardiopulmonary findings .Electronically signed by: Mack Hernandez (Jun 28, 2022 06:06:51)
[2022-06-28 06:13] LABS: ALANINE AMINOTRANSFERASE 24 Units/L (12-78); ALBUMIN 3.4 g/dL (3.4-5.0); ALKALINE PHOSPHATASE 80 Units/L (46-116); ASPARTATE AMINO TRANSFERASE 18 Units/L (15-37); BLOOD UREA NITROGEN 9 mg/dL (7-18); CALCIUM 8.4 mg/dL (8.5-10.1); CARBON DIOXIDE 27.2 mmol/L (21-32); CHLORIDE 108 mmol/L (98-107); COR NA(FOR HYPERGLY) 144 mmol/L (136-145); CREATININE 0.75 mg/dL (0.55-1.02); SODIUM 144 mmol/L (136-145); TOTAL PROTEIN 6.2 g/dL (6.4-8.2); eGFR NON BLACK RACES > 60 (>60)
[2022-06-28] MEDS: AMARYL TAB 4 MG PO SCH (06:14)
[2022-06-28] MEDS ORDERED: K-DUR TAB 20 MEQ PO PRN (06:29)
[2022-06-28] MEDS ORDERED: KLOR-CON PO PRN (06:29)
[2022-06-28] MEDS ORDERED: K-RIDER 10 MEQ/NS 100 ML 10 MEQ/100 ML BAG IV PRN (06:29)
[2022-06-28] MEDS ORDERED: POTASSIUM CHLORIDE LIQ 20 MEQ UDC PO PRN (06:29)
[2022-06-28] MEDS ORDERED: POTASSIUM CHL 60 MEQ/NS 0.45% 500 ML IV PRN (06:29)
[2022-06-28] MEDS ORDERED: POTASSIUM CHL 40 MEQ/NS 0.45% 500 ML IV PRN (06:29)
[2022-06-28] MEDS ORDERED: MICRO K EXTEN CAP 10 MEQ PO PRN (06:29)
[2022-06-28] MEDS: CLARITIN PO SCH (08:11)
[2022-06-28] MEDS: BENICAR TAB 40 MG PO SCH (08:11)
[2022-06-28] MEDS: CATAPRES TAB 0.1 MG PO SCH (08:11)
[2022-06-28] MEDS: LOPRESSOR TAB 50 MG PO SCH ×2 (08:12→22:38)
[2022-06-28] MEDS: PREVACID PO SCH ×2 (08:12→21:41)
[2022-06-28] MEDS: MUCINEX EXPECTORANT PO SCH (08:12)
[2022-06-28] MEDS: SYNTHROID 50 mcg TAB PO SCH (08:13)
[2022-06-28] MEDS: VITAMIN C PO SCH (08:13)
[2022-06-28] MEDS: VITAMIN D3 25 mcg (1,000 UNITS) PO SCH (08:13)
[2022-06-28] MEDS: MAGNESIUM SULFATE 1 GRAM/100 mL PREMIX 1 G/100 ML BAG IV PRN ×2 (08:15→10:57)
[2022-06-28] MEDS ORDERED: HYDROCHLOROTHIAZIDE 12.5 MG CAP PO SCH (09:00)
[2022-06-28] MEDS ORDERED: HYDROCHLOROTHIAZIDE 12.5 MG CAP PO ONE (10:00)
[2022-06-28] MEDS: LOVENOX INJ 40 MG SYR SC SCH (10:06)
--- NOTE | 2022-06-28 16:00 | DR.UPDATE ---
H&P Update History and Physical Update: History and Physical reviewed and patient examined. Changes noted: Yes with the following: PATIENT WAS ADMITTED FOR FURTHER EVALUATION AND TREATMENT OF DIZZINESS, CHEST PRESSURE, AND SHORTNESS OF BREATH. ON ADMISSION, VITALS WERE: 98.7-64-22-98%-218/88. LABS WERE OBTAINED. WBC 6.9, RBC4.73, HGB 14.6, HCT 41.5, SODIUM 140, POTASSIUM 3.8, CHLORIDE 106, BUN 11, CREATININE 0.89, GLUCOSE 129, CALCIUM 8.5, TOTAL BILI 0.40, AST 18, ALT 23, ALK PHOS 91, TOTAL PROTEIN 6.3, ALBUMIN 3.6. CARDIAC ENZYMES WERE WITHIN NORMAL LIMITS. A CHEST XRAY WAS OBTAINED AND REVEALED: Heart size remains normal with lungs clear of active-appearing disease. There is no definite pneumonia, CHF or significant pleural effusion. EKG REVEALED: NSR WITH HR 62. SHE WAS STARTED ON NORMAL SALINE AT 50 ML/HR, THE POTASSIUM AND MAGNESIUM PROTOCOLS, LOVENOX 40MG SC DAILY, OTBS ACHS, HUMULIN R SLIDING SCALE. HER HOME MEDICATIONS OF ASCORBIC ACID, ATORVASTATIN, VITAMIN D, CATAPRES, COLCRYS, AMARYL, MUCINEX, PREVACID, SYNTHROID, CLARITIN, LOPRESSOR, BENICAR, HCTZ, AND ZOFRAN WERE RESUMED. WE WILL ADD AMLODIPINE 5MG PO DAILY AT BEDTIME. WE WILL OBTAIN SERIAL CARDIAC ENZYMES AND EKGS. OTHERWISE, WE PLAN TO FOLLOW-UP WITH AM LABS AND CONTINUE TO MONITOR. TIME SPENT ON CLINICAL ASSESSMENT, REVIEWING LABS AND IMAGING, DECISION MAKING, AND DOCUMENTATION GREATER THAN 75 MINUTES. H&P Reviewed: Yes Patient was examined?: Yes
[2022-06-28] MEDS ORDERED: CATAPRES-TTS-2 TD SCH (17:00)
--- NOTE | 2022-06-28 18:50 | PCM.PROG ---
Progress Note - Progress Note for Day of Date of Exam: 06/28/22 - Subjective Subjective: IS CURRENTLY OBSERVATION STATUS FOR TREATMENT OF CHEST PAIN RULE OUT ACUTE MD, SHORTNESS OF BREATH, AND HTN. TODAY, SHE IS ALERT AND ORIENTED, SITTING UP IN BED ON MORNING ROUNDS. SHE COMPLAINS OF HEADACHE, SHORTNESS OF BREATH AT TIMES, AND WEAKNESS TODAY. SHE DENIES CHEST PAIN THIS M ORNING. HER BLOOD PRESSURE HAS BEEN ELEVATED THROUGHOUT THE NIGHT AND THIS MORNING DESPITE RESUMING HER HOME MEDICATIONS. ON EXAMINATION, HEART IS REGULAR IN RATE AND RHYTHM. BILATERAL LUNGS ARE NOTED WITH DIMINISHED LUNG SOUNDS THROUGHOUT. ABDOMEN IS ROUND, SOFT, AND NON-TENDER WITH NORMAL BOWEL SOUNDS NOTED IN ALL QUADRANTS. TRACE EDEMA NOTED TO BILATERAL LOWER EXTREMITIES. HER VITALS THIS MORNING ARE: 98.1-60-21-98%-191/79. LAB WERE OBTAINED. WBC 4.8, RBC 4.86, HGB 14.8, HCT 42.1, SODIUM 144, POTASSIUM 3.2, CHLORIDE 108, BUN 9, CREATININE 0.75, GLUCOSE 119, CALCIUM 8.4, MAGNESIUM 1.6, AST 18, ALT 24, ALK PHOS 80, TOTAL PROTEIN 6.2, ALBUMIN 3.4. CARDIAC ENZYMES AND EKGS HAVE BEEN NORMAL. HE IS CURRENTLY RECEIVING NORMAL SALINE AT 50 ML/HR, THE POTASSIUM AND MAGNESIUM PROTOCOLS, LOVENOX 40MG SC DAILY, AMLODIPINE 5MG PO HS, OTBS ACHS, HUMULIN R SLIDING SCALE. HER HOME MEDICATIONS OF ASCORBIC ACID, ATORVASTATIN, VITAMIN D, CATAPRES, COLCRYS, AMARYL, MUCINEX, PREVACID, SYNTHROID, CLARITIN, LOPRESSOR, BENICAR, HCTZ, AND ZOFRAN WERE RESUMED. TODAY, WE WILL DISCONTINUE IV FLUIDS. WE WILL INCREASE HCTZ TO 25MG PO DAILY, CHANGE CLONIDINE TO 0.2MG/HR TD PATCH, AND INCREASE AMLODIPINE TO 10MG PO HS. WE WILL ALSO ADD ZOLOFT 50MG PO BID. OTHERWISE, WE WILL FOLLOW-UP WITH AM LABS AND CONTINUE TO MONITOR. - Past Medical Family Social History Past Med/Fam/Surg Hx: No changes since H&P Allergies: Allergies azithromycin [From Zithromax] Allergy (Verified 04/07/21 09:32) budesonide [From Symbicort] Allergy (Verified 04/07/21 09:32) cetirizine [From Zyrtec] Allergy (Verified 04/07/21 09:32) ciprofloxacin [From Cipro] Allergy (Verified 04/07/21 09:32) clavulanic acid [From Augmentin] Allergy (Verified 04/07/21 09:32) clonazepam [From Klonopin] Allergy (Verified 04/07/21 09:32) formoterol [From Symbicort] Allergy (Verified 04/07/21 09:32) meclizine Allergy (Verified 04/07/21 09:32) naproxen Allergy (Verified 04/07/21 09:32) nitrofurantoin [From Macrobid] Allergy (Verified 04/07/21 09:32) omeprazole [From Prilosec] Allergy (Verified 11/20/17 14:11) phenazopyridine [From Pyridium] Allergy (Verified 11/20/17 14:11) sulfamethoxazole [From Bactrim] Allergy (Verified 11/20/17 14:11) tizanidine Allergy (Verified 11/20/17 14:11) trimethoprim [From Bactrim] Allergy (Verified 11/20/17 14:11) - Review of Systems ROS: No change since H&P - Vital Signs and I&O's Vital Signs: Temperature 97.8 F Pulse Rate 63 Respiratory Rate 26 Blood Pressure [Left Arm] 154/68 Blood Pressure [Right Arm] 195/81 Blood Pressure 162/70 O2 Sat by Pulse Oximetry 98 Intake and Output: Intake & Output 06/26/22 06/27/22 06/28/22 06/29/22 11:59 11:59 11:59 11:59 Intake Total 1932 1010 / 1010 Balance 1932 1010 / 1010 - Physical Exam Oriented: Normal Eyes: Normal Ear: Normal Nose: Normal Throat: Normal Respiratory: Normal Cardiovascular: Normal : Normal Auscultation: Bowel Sounds: Normal Palpation: Normal Tenderness: Normal Skin: Normal Musculoskeletal: Normal Psychiatric: Normal Mood Description: Calm Affect: Normal Speech Pattern: Clear, Appropriate - Laboratory and Diagnostics Result Diagrams: 06/28/22 05:04 06/28/22 05:04 Labs: Laboratory WBC 4.8 X10^3/uL (3.6-10.0) 06/28/22 05:04 RBC 4.86 X10^6/uL (3.5-5.4) 06/28/22 05:04 Hgb 14.8 g/dL (12.0-16.0) 06/28/22 05:04 Hct 42.1 % (36.0-47.0) 06/28/22 05:04 MCV 86.7 fL (80.0-100.0) 06/28/22 05:04 MCH 30.5 pg (27.0-34.0) 06/28/22 05:04 MCHC 35.2 g/dL (33.0-35.0) H 06/28/22 05:04 RDW 13.1 % (11.6-16.5) 06/28/22 05:04 Plt Count 200 X10^3/uL (150.0-450.0) 06/28/22 05:04 MPV 9.0 fL (7.4-11.0) 06/28/22 05:04 Neut % (Auto) 53.0 % (42.0-75.0) 06/28/22 05:04 Lymph % (Auto) 35.1 % (21.0-51.0) 06/28/22 05:04 [place] % (Auto) 9.2 % (0.0-13.0) 06/28/22 05:04 Eos % (Auto) 2.3 % (0.9-2.9) 06/28/22 05:04 Baso % (Auto) 0.4 % (0.2-1.0) 06/28/22 05:04 Neut # (Auto) 2.6 x10^3/uL (2.2-4.8) 06/28/22 05:04 Lymph # (Auto) 1.7 X10^3/uL (1.3-2.9) 06/28/22 05:04 [place] # (Auto) 0.4 x10^3/uL (0.3-0.8) 06/28/22 05:04 Eos # (Auto) 0.1 x10^3/uL (0.0-0.2) 06/28/22 05:04 Baso # (Auto) 0.0 X10^3/uL (0.0-0.1) 06/28/22 05:04 Absolute Nucleated RBC 0.1 /100WBC 06/28/22 05:04 Sodium 144 mmol/L (136-145) 06/28/22 05:04 Corrected Sodium 144 mmol/L (136-145) 06/28/22 05:04 Potassium 3.2 mmol/L (3.5-5.1) L 06/28/22 05:04 Chloride 108 mmol/L (98-107) H 06/28/22 05:04 Carbon Dioxide 27.2 mmol/L (21-32) 06/28/22 05:04 BUN 9 mg/dL (7-18) 06/28/22 05:04 Creatinine 0.75 mg/dL (0.55-1.02) 06/28/22 05:04 Est GFR (MDRD) Af Amer > 60 (>60) 06/28/22 05:04 Est GFR (MDRD) Non-Af > 60 (>60) 06/28/22 05:04 Glucose 119 mg/dL (65-99) H 06/28/22 05:04 POC Glucose (mg/dL) 85 mg/dL (65-99) 06/28/22 16:10 Calcium 8.4 mg/dL (8.5-10.1) L 06/28/22 05:04 Corrected Calcium TNP 06/28/22 05:04 Magnesium 1.6 mg/dL (1.7-2.9) L 06/28/22 05:04 Total Bilirubin 0.60 mg/dL (0.2-1.0) 06/28/22 05:04 AST 18 Units/L (15-37) 06/28/22 05:04 ALT 24 Units/L (12-78) 06/28/22 05:04 Alkaline Phosphatase 80 Units/L (46-116) 06/28/22 05:04 Creatine Kinase 47 Units/L (26-192) 06/27/22 20:02 Troponin I High Sens 9.2 ng/L (4.0-60.0) 06/27/22 20:02 Total Protein 6.2 g/dL (6.4-8.2) L 06/28/22 05:04 Albumin 3.4 g/dL (3.4-5.0) 06/28/22 05:04 Globulin 2.8 g/dL (2.5-4.5) 06/28/22 05:04 Albumin/Globulin Ratio 1.2 Ratio (1.1-2.1) 06/28/22 05:04 SARS CoV-2 RNA Rapid ROSARIO Negative (NEGATIVE) 06/28/22 03:23 - Plan (1) Uncontrolled hypertension Status: Acute Plan: LOPRESSOR 100MG PO BID, AMLODIPINE 10MG PO HS, BENICAR 40MG PO DAILY, HCTZ 25MG PO DAILY, CLONIDINE 0.2MG/HR TD PATCH, CONTINUE TO MONITOR (2) Generalized weakness Status: Acute (3) Breath shortness Status: Acute (4) COPD (chronic obstructive pulmonary disease) Status: Chronic Qualifiers: COPD type: unspecified COPD Qualified Code(s): J44.9 - Chronic obstructive pulmonary disease, unspecified (5) GERD (gastroesophageal reflux disease) Status: Chronic Qualifiers: Esophagitis presence: esophagitis presence not specified Qualified Code(s): K21.9 - Gastro-esophageal reflux disease without esophagitis Plan: CONTINUE HOME MEDS (6) Hyperlipidemia Status: Chronic Qualifiers: Hyperlipidemia type: mixed hyperlipidemia Plan: CONTINUE HOME MEDS
[2022-06-28] MEDS ORDERED: SNACK - Diabetic Appropriate PO SCH (20:00)
[2022-06-28] MEDS ORDERED: NORVASC TAB 5 MG PO SCH (21:00)
[2022-06-28] MEDS: LIPITOR TAB 20 MG PO SCH (21:50)
[2022-06-28] MEDS: ZOLOFT PO SCH (21:55)
[2022-06-29 05:41] LABS: BASOPHILS % (AUTO) 0.4 % (0.2-1.0); EOSINOPHILS # (AUTO) 0.1 x10^3/uL (0.0-0.2); EOSINOPHILS % (AUTO) 2.2 % (0.9-2.9); HEMATOCRIT 42.7 % (36.0-47.0); HEMOGLOBIN 15.1 g/dL (12.0-16.0); LYMPHOCYTES # (AUTO) 1.4 X10^3/uL (1.3-2.9); LYMPHOCYTES % (AUTO) 23.6 % (21.0-51.0); MEAN CORPUSCULAR HEMOGLOBIN 30.7 pg (27.0-34.0); MEAN CORPUSCULAR HGB CONC 35.4 g/dL (33.0-35.0); MONOCYTES # (AUTO) 0.6 x10^3/uL (0.3-0.8); MONOCYTES % (AUTO) 9.7 % (0.0-13.0); NEUTROPHILS # (AUTO) 3.7 x10^3/uL (2.2-4.8); NEUTROPHILS % (AUTO) 64.1 % (42.0-75.0); RED BLOOD COUNT 4.91 X10^6/uL (3.5-5.4); RED CELL DISTRIBUTION WIDTH 13.8 % (11.6-16.5); WHITE BLOOD COUNT 5.7 X10^3/uL (3.6-10.0)
[2022-06-29 05:58] LABS: ALANINE AMINOTRANSFERASE 21 Units/L (12-78); ALBUMIN 3.4 g/dL (3.4-5.0); ALKALINE PHOSPHATASE 79 Units/L (46-116); ASPARTATE AMINO TRANSFERASE 13 Units/L (15-37); BLOOD UREA NITROGEN 10 mg/dL (7-18); CALCIUM 8.4 mg/dL (8.5-10.1); CARBON DIOXIDE 29.1 mmol/L (21-32); CHLORIDE 103 mmol/L (98-107); CREATININE 0.68 mg/dL (0.55-1.02); SODIUM 141 mmol/L (136-145); TOTAL PROTEIN 6.2 g/dL (6.4-8.2); eGFR NON BLACK RACES > 60 (>60)
[2022-06-29] MEDS: AMARYL TAB 4 MG PO SCH (06:00)
[2022-06-29] MEDS: BENICAR TAB 40 MG PO SCH (08:55)
[2022-06-29] MEDS: CLARITIN PO SCH (08:55)
[2022-06-29] MEDS: SYNTHROID 50 mcg TAB PO SCH (08:56)
[2022-06-29] MEDS: VITAMIN C PO SCH (08:56)
[2022-06-29] MEDS: LOVENOX INJ 40 MG SYR SC SCH (08:56)
[2022-06-29] MEDS: MUCINEX EXPECTORANT PO SCH (08:56)
[2022-06-29] MEDS: PREVACID PO SCH (08:56)
[2022-06-29] MEDS: LOPRESSOR TAB 50 MG PO SCH (08:56)
[2022-06-29] MEDS: ZOLOFT PO SCH ×2 (08:57→09:04)
[2022-06-29] MEDS: VITAMIN D3 25 mcg (1,000 UNITS) PO SCH (08:57)
[2022-06-29] MEDS: TYLENOL 325 MG TAB PO PRN (09:04)
[2022-06-29] MEDS: COLCRYS TAB 0.6 MG PO PRN (09:04)
[2022-06-29 09:13] VITALS: BP 163/74
== END 2022-06-29 10:59 | disposition home or self-care (01) ==
LOC: ICU
PROVIDERS: ADMIT Internal Medicine; ATTEND Internal Medicine
DX: E78.2 Mixed hyperlipidemia; R51.9 Headache, unspecified; K21.9 Gastro-esophageal reflux disease without esophagitis; Z20.822 Contact with and (suspected) exposure to COVID-19; J44.9 Chronic obstructive pulmonary disease, unspecified; R06.02 Shortness of breath; R53.1 Weakness; R07.89 Other chest pain; I16.0 Hypertensive urgency; E11.65 Type 2 diabetes mellitus with hyperglycemia